=== PATIENT | female | born 1940 | race Caucasian/White ===

== ENCOUNTER 2018-09-08 18:15 | Emergency (ER) | payer MEDICARE ==
--- NOTE | 2018-09-08 18:36 | ED Physician Documentation ---
PD HPI SYNCOPE - Stated complaint Stated Complaint: SYNCOPE/GLF - Chief complaint Chief Complaint: Neuro - History obtained from History obtained from: Patient, Family - History of Present Illness Timing - onset: Today (For a few minutes and then passed out. She scraped her left knee and right elbow. Unclear when her last tetanus shot was. 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 She says she was not drinking today. Nor does she drink alcohol at all.) Review of Systems Ten Systems: 10 systems reviewed and negative Constitutional: reports: Reviewed and negative Cardiac: reports: Reviewed and negative Respiratory: reports: Reviewed and negative PD PAST MEDICAL HISTORY - Present Medications Home Medications: Ambulatory Orders Medication Instructions Recorded Confirmed Acetaminophen [Tylenol Extra 1,000 mg PO BID 09/08/18 09/08/18 Strength] Amox/Clav 875/125 [Augmentin] 1 each PO Q12H #20 tablet 09/08/18 Fluticasone 44 Mcg [Flovent] 2 puffs INH BID 09/08/18 09/08/18 Insulin Aspart [NovoLOG] 1 unit SUBQ ACHS 09/08/18 09/08/18 Insulin Detemir [Levemir Flextouch] 11 unit SUBQ QPM 09/08/18 09/08/18 Ipratropium/Albuterol [Combivent 1 puffs INH QID 09/08/18 09/08/18 Respimat] Magnesium Oxide [Mag Ox] 400 mg PO QDBREAKFAST 09/08/18 09/08/18 RX: Atorvastatin [Lipitor] 10 mg PO QDBREAKFAST 09/08/18 09/08/18 RX: Bumetanide 1 mg PO BID 09/08/18 09/08/18 RX: Donepezil [Aricept] 2.5 mg PO QDBREAKFAST 09/08/18 09/08/18 RX: Ibuprofen 200 mg PO BID 09/08/18 09/08/18 RX: Lactulose 10 gm PO TID 09/08/18 09/08/18 RX: Levothyroxine [Synthroid] 75 mg PO DAILY 09/08/18 09/08/18 RX: Losartan Potassium 25 mg PO QDDINNER 09/08/18 09/08/18 RX: Potassium Chloride 20 meq PO QDBREAKFAST 09/08/18 09/08/18 RX: traZODone [Desyrel] 50 mg PO QPM 09/08/18 09/08/18 Sertraline [Zoloft] 100 mg PO QDBREAKFAST 09/08/18 09/08/18 raNITIdine HCl [Zantac] 150 mg PO QDBREAKFAST 09/08/18 09/08/18 rifAXIMin [Xifaxan] 550 mg PO BID 09/08/18 09/08/18 rifAXIMin [Xifaxan] 550 mg PO QDBREAKFAST 09/08/18 09/08/18 - Allergies Allergies/Adverse Reactions: Allergies Allergy/AdvReac Type Severity Reaction Status Date / Time Iodinated Contrast- Oral and Allergy Unknown Verified 09/08/18 18:27 IV Dye shellfish derived Allergy Anaphylaxis Verified 09/08/18 18:28 PD ED PE NORMAL - Vitals Vital signs reviewed: Yes - General General: Alert and oriented X 3, Other (Slightly slow to answer questions) - HEENT HEENT: PERRL, EOMI, Pharynx benign - Neck Neck: Supple, no meningeal sign, No bony TTP - Cardiac Cardiac: RRR, No murmur - Respiratory Respiratory: No respiratory distress, Clear bilaterally - Abdomen Abdomen: Soft, Non tender - Back Back: No CVA TTP, No spinal TTP - Derm Derm: Normal color, Warm and dry - Extremities Extremities: No edema, No calf tenderness / cord - Neuro Neuro: Alert and oriented X 3, No motor deficit, No sensory deficit, Normal speech, Other (no gross asterixis) Eye Opening: Spontaneous Motor: Obeys Commands Verbal: Oriented GCS Score: 15 Results - Vitals Vitals: Vital Signs - 24 hr 09/08/18 09/08/18 18:22 19:10 Temperature 36.5 C Heart Rate 68 66 Respiratory 16 20 Rate Blood Pressure 163/62 H 104/84 H O2 Saturation 95 96 Oxygen O2 Source Room air - EKG (time done) 1823 Rate: Rate (enter#) (66) Rhythm: NSR [place]: Normal Intervals: Normal CT QRS: LVH Ischemia: Normal ST segments Computer interpretation: Agree with computer - Labs Labs: Laboratory Tests 09/08/18 09/08/18 09/08/18 18:35 18:35 18:35 WBC 7.8 RBC 3.40 L Hgb 11.0 L Hct 33.4 L MCV 98.2 MCH 32.4 H MCHC 32.9 RDW 13.1 Plt Count 156 MPV 9.9 Neut # (Auto) 5.7 Lymph # (Auto) 1.4 L [place] # (Auto) 0.5 Eos # (Auto) 0.2 Baso # (Auto) 0.0 Absolute Nucleated RBC 0.00 Nucleated RBC % 0.0 PT 12.9 H INR 1.1 Sodium 138 Potassium 3.7 Chloride 104 Carbon Dioxide 23 Anion Gap 11.0 BUN 21 H Creatinine 0.9 Estimated GFR (MDRD) 61 L Glucose 189 H POC Whole Bld Glucose Calcium 9.4 Total Bilirubin 0.8 AST 34 ALT 23 Alkaline Phosphatase 96 Ammonia Total Protein 6.5 L Albumin 3.5 Globulin 3.0 Albumin/Globulin Ratio 1.2 Lipase 31 Ethyl Alcohol < 5.0 09/08/18 09/08/18 18:35 18:36 WBC RBC Hgb Hct MCV MCH MCHC RDW Plt Count MPV Neut # (Auto) Lymph # (Auto) [place] # (Auto) Eos # (Auto) Baso # (Auto) Absolute Nucleated RBC Nucleated RBC % PT INR Sodium Potassium Chloride Carbon Dioxide Anion Gap BUN Creatinine Estimated GFR (MDRD) Glucose POC Whole Bld Glucose 170 H Calcium Total Bilirubin AST ALT Alkaline Phosphatase Ammonia 76.8 H Total Protein Albumin Globulin Albumin/Globulin Ratio Lipase Ethyl Alcohol - Rads (name of study) CT Head and Cspine Radiology: EMP read contemporaneously (Maxillary sinusitis, apical lung mass, note the family was aware of this, they have already had a biopsied and it was benign and has not grown.) PD MEDICAL DECISION MAKING - ED course ED course: 77-year-old woman with syncopal episode earlier today. Findings are as shown with modest hyperammonemia/hepatic encephalopathy (grade I), apical lung mass but the family was all aware of that and sinusitis. She remained well-appearing without complaints here. Her wounds were cleansed and dressed and tetanus was updated. Departure - Departure Disposition: 01 Home, Self Care Clinical Impression: Hepatic encephalopathy, Sinusitis, Lung mass Condition: Good Record reviewed to determine appropriate education?: Yes Health Concerns: syncope Plan of Treatment: abx, lactulose Assessment: Known lung mass, stable per family. Mild hepatic encephalopathy, will take a double dose of lactulose when she gets home as she has about a 30 or 40-minute car trip in front of her after she leaves the hospital. Start antibiotics for the sinus infection. Follow-up with gastroenterology. Instructions: Cirrhosis Liver Dc, ED Sinusitis Abx Tx Follow-Up: Addison Lopez MD [Physician No Access] - Prescriptions: Amox/Clav 875/125 [Augmentin] 1 each PO Q12H #20 tablet Comments: Your ammonia level today was 76.8. You should email your pearl peller with this value. He may want to repeat labs later this week to recheck it. Take a double dose of lactulose tonight and continue taking your lactulose otherwise as directed. Return for new or worsening symptoms. Discharge Date/Time: 09/08/18 19:57
[2018-09-08] MEDS ORDERED: TETANUS/DIPHTHERIA/PERTUSSIS 0.5 ML SYRINGE IM ONE (18:41)
[2018-09-08 18:57] LABS: ALBUMIN 3.5 g/dL (3.2-5.5); ALBUMIN/GLOBULIN RATIO 1.2 (1.0-2.2); ALKALINE PHOSPHATASE 96 IU/L (42-121); ALT ALANINE AMINOTRANSFERASE 23 IU/L (10-60); AST ASPARTATE AMINOTRANSFERASE 34 IU/L (10-42); BILIRUBIN,TOTAL 0.8 mg/dL (0.2-1.0); BUN - BLOOD UREA NITROGEN 21 mg/dL (6-20); CALCIUM 9.4 mg/dL (8.5-10.3); CARBON DIOXIDE - CO2 23 mmol/L (21-32); CHLORIDE 104 mmol/L (101-111); CREATININE 0.9 mg/dL (0.4-1.0); GFR - MDRD 61 (>89); GLUCOSE 189 mg/dL (70-100); LIPASE 31 U/L (22-51); SODIUM 138 mmol/L (135-145); TOTAL PROTEIN 6.5 g/dL (6.7-8.2)
[2018-09-08 19:01] LABS: BASOPHILS % (AUTO) 0.5 %; EOSINOPHILS # (AUTO) 0.2 10^3/uL (0.0-0.7); EOSINOPHILS % (AUTO) 1.9 %; LYMPHOCYTES # (AUTO) 1.4 10^3/uL (1.5-3.5); LYMPHOCYTES % (AUTO) 18.4 %; MEAN CORPUSCULAR HEMOGLOBIN 32.4 pg (27.0-31.0); MEAN CORPUSCULAR HGB CONC 32.9 g/dL (32.0-36.0); MEAN CORPUSCULAR VOLUME 98.2 fL (81.0-99.0); MEAN PLATELET VOLUME 9.9 fL (7.9-10.8); MONOCYTES # (AUTO) 0.5 10^3/uL (0.0-1.0); MONOCYTES % (AUTO) 6.5 %; NEUTROPHILS # (AUTO) 5.7 10^3/uL (1.5-6.6); NEUTROPHILS % (AUTO) 72.6 %; PLT - PLATELET COUNT 156 10^3/uL (130-450); RED CELL DISTRIBUTION WIDTH 13.1 % (12.0-15.0); WHITE BLOOD COUNT 7.8 x10^3/uL (4.8-10.8)
[2018-09-08 19:14] LABS: INR 1.1 (0.8-1.2); PT - PROTHROMBIN TIME 12.9 secs (9.9-12.6)
[2018-09-08 19:15] VITALS: BP 104/84
--- NOTE | 2018-09-08 19:20 | CT Report ---
Reason: syncope, poss head inj Procedure Date: 09/08/2018 Accession Number: [id number] / [id number] Procedure: CT - HEAD WO CPT Code: FULL RESULT: EXAM: CT HEAD EXAM DATE: 09/08/2018 06:54 PM. CLINICAL HISTORY: Syncope, poss head inj. COMPARISON: None. TECHNIQUE: Multiaxial CT images were obtained from the foramen magnum to the vertex. Reformats: Sagittal and coronal. IV contrast: None. In accordance with CT protocol optimization, one or more of the following dose reduction techniques were utilized for this exam: automated exposure control, adjustment of mA and/or KV based on patient size, or use of iterative reconstructive technique. FINDINGS: Parenchyma: No intraparenchymal hemorrhage. No evidence of mass, midline shift, or CT findings of infarction. Faustin-white differentiation is distinct. Extraaxial Spaces: Normal for age. No subdural or epidural collections identified. Ventricles: Normal in size and position. Sinuses and Orbits: Opacified upper left maxillary sinus and anterior ethmoid air cells. Bones: No evidence of fracture or calvarial defect. Other: None. IMPRESSION: No acute intracranial abnormality. RADIA
--- NOTE | 2018-09-08 19:26 | CT Report ---
Reason: syncope, poss head inj Procedure Date: 09/08/2018 Accession Number: [id number] / [id number] Procedure: CT - CERVICAL SPINE WO CPT Code: FULL RESULT: EXAM: CT CERVICAL SPINE WITHOUT CONTRAST DATE: 09/08/2018 06:54 PM. HISTORY: Syncope, poss head inj. COMPARISONS: None. TECHNIQUE: Thin-section axial images were acquired of the cervical spine without contrast. Post-processing: Coronal and sagittal reformats. Other: None. In accordance with CT protocol optimization, one or more of the following dose reduction techniques were utilized for this exam: automated exposure control, adjustment of mA and/or KV based on patient size, or use of iterative reconstructive technique. FINDINGS: Alignment: No scoliosis or spondylolisthesis. Bones: No acute fracture. The bones are demineralized. Interspace Levels/Facets: Mild to moderate multilevel disk degeneration and facet arthrosis without high-grade spinal canal stenosis. Other: The paravertebral and prevertebral soft tissues are unremarkable. 1.8 x 1.6 cm subpleural nodule in the subpleural right lung apex with surrounding heterogeneous reticulation and groundglass. IMPRESSION: 1. No acute fracture. 2. Subpleural right upper lobe nodule with surrounding reticulation and groundglass, which may represent chronic scarring. Differential includes neoplasm. No priors available. RADIA
[2018-09-08] MEDS ORDERED: AMOX/CLAV 875 MG/125 MG TABLET PO STA (19:41)
== END 2018-09-08 19:57 | disposition home or self-care (01) ==
LOC: ED 18:15
DX: R55 Syncope and collapse (principal); K72.90 Hepatic failure, unspecified without coma; B19.20 Unspecified viral hepatitis C without hepatic coma; J01.00 Acute maxillary sinusitis, unspecified; R91.8 Other nonspecific abnormal finding of lung field; S80.212A Abrasion, left knee, initial encounter; S50.311A Abrasion of right elbow, initial encounter; W18.30XA Fall on same level, unspecified, initial encounter; Y93.K1 Activity, walking an animal; Z23 Encounter for immunization; E11.9 Type 2 diabetes mellitus without complications; Z79.4 Long term (current) use of insulin; I51.7 Cardiomegaly
CPT/HCPCS: 36415; 70450; 72125; 80053; 82140; 83690; 85025; 85610; 90471; 90715; 93005; 99283; 99284; A9270; 80320

== ENCOUNTER 2018-10-13 13:10 | Outpatient (CLI) | payer MEDICARE | END 2018-10-13 13:11 | disposition EMS.NT | LOC: EMS 13:10 | PROVIDERS: ATTEND Surgery | DX: Z03.89 Encounter for observation for other suspected diseases and conditions ruled out (principal) ==

== ENCOUNTER 2018-11-15 20:21 | Emergency (ER) | payer MEDICARE ==
--- NOTE | 2018-11-15 20:28 | ED Physician Documentation ---
PD HPI FOCAL NEURO - Stated complaint Stated Complaint: SLURRING WORDS - History obtained from History obtained from: Patient - History of Present Illness Timing - onset: How many hours ago (2 hours COMMUNICATIONS ADMINISTRATOR) Timing - details: Abrupt onset Severity of deficit: Moderate Baseline status: positive: Dementia (per son, patient is usually conversant but can be slow with some answers and sometimes incorrect answers) Similar symptoms before: Diagnosis (son feels that symptoms are similar to previous episodes (x 2) of hepatic encephalopathy) Recently seen: Not recently seen - Additional information Additional information: per patient's son, approximately 2 hours COMMUNICATIONS ADMINISTRATOR, patient was exhibiting slurred speech, "not quite acting herself", decreased appetite (had just eaten dinner but declined desert, which is unusual for her). She also appeared to have difficulty with coordination and ambulation. She had recently (tonight) been given her QPM trazadone as well as a dose of benadryl earlier this afternoon. Review of Systems Constitutional: denies: Fever, Chills, Sweats Eyes: denies: Loss of vision, Decreased vision Cardiac: reports: Reviewed and negative Respiratory: reports: Reviewed and negative GI: reports: Reviewed and negative : denies: Dysuria, Frequency Musculoskeletal: reports: Reviewed and negative Neurologic: reports: Difficulty speaking, Altered mental status. denies: Generalized weakness, Focal weakness, Numbness, Near syncope, Syncope, Headache, Head injury, LOC PD PAST MEDICAL HISTORY - Past Medical History Cardiovascular: Murmur Respiratory: COPD Neuro: Dementia Endocrine/Autoimmune: Type 2 diabetes, HyPOthyroidism GI: None TRAFFIC PERSONNEL SUPERVISOR: None : Kidney stones HEENT: Other Psych: Depression Musculoskeletal: None Derm: Psoriasis - Past Surgical History Past Surgical History: Yes Ortho: Carpal Tunnel surgery /TRAFFIC PERSONNEL SUPERVISOR: Hysterectomy - Present Medications Home Medications: Ambulatory Orders Medication Instructions Recorded Confirmed Acetaminophen [Tylenol Extra 1,000 mg PO BID 09/08/18 09/08/18 Strength] Amox/Clav 875/125 [Augmentin] 1 each PO Q12H #20 tablet 09/08/18 Atorvastatin [Lipitor] 10 mg PO QDBREAKFAST 09/08/18 09/08/18 Bumetanide 1 mg PO BID 09/08/18 09/08/18 Donepezil [Aricept] 2.5 mg PO QDBREAKFAST 09/08/18 09/08/18 Fluticasone 44 Mcg [Flovent] 2 puffs INH BID 09/08/18 09/08/18 Ibuprofen 200 mg PO BID 09/08/18 09/08/18 Insulin Aspart [NovoLOG] 1 unit SUBQ ACHS 09/08/18 09/08/18 Insulin Detemir [Levemir Flextouch] 11 unit SUBQ QPM 09/08/18 09/08/18 Ipratropium/Albuterol [Combivent 1 puffs INH QID 09/08/18 09/08/18 Respimat] Lactulose 10 gm PO TID 09/08/18 09/08/18 Levothyroxine [Synthroid] 75 mg PO DAILY 09/08/18 09/08/18 Losartan Potassium 25 mg PO QDDINNER 09/08/18 09/08/18 Magnesium Oxide [Mag Ox] 400 mg PO QDBREAKFAST 09/08/18 09/08/18 Potassium Chloride 20 meq PO QDBREAKFAST 09/08/18 09/08/18 Sertraline [Zoloft] 100 mg PO QDBREAKFAST 09/08/18 09/08/18 raNITIdine HCl [Zantac] 150 mg PO QDBREAKFAST 09/08/18 09/08/18 rifAXIMin [Xifaxan] 550 mg PO BID 09/08/18 09/08/18 rifAXIMin [Xifaxan] 550 mg PO QDBREAKFAST 09/08/18 09/08/18 traZODone [Desyrel] 50 mg PO QPM 09/08/18 09/08/18 - Allergies Allergies/Adverse Reactions: Allergies Allergy/AdvReac Type Severity Reaction Status Date / Time Iodinated Contrast Media Allergy Unknown Verified 11/15/18 20:33 [Iodinated Contrast- Oral and IV Dye] shellfish derived Allergy Anaphylaxis Verified 11/15/18 20:33 - Social History Does the pt smoke?: No Smoking Status: Never smoker Does the pt drink ETOH?: Yes - Immunizations Immunizations: TDAP current <10years PD ED PE NORMAL - Vitals Vital signs reviewed: Yes - General General: Alert and oriented X 3, No acute distress, Well developed/nourished, Other (answers appropriately although slow to answer most questions) - HEENT HEENT: Atraumatic, PERRL, EOMI - Neck Neck: Supple, no meningeal sign - Cardiac Cardiac: RRR, No murmur - Respiratory Respiratory: No respiratory distress, Clear bilaterally - Abdomen Abdomen: Soft, Non tender - Derm Derm: Normal color, Warm and dry - Extremities Extremities: No edema - Neuro Neuro: Alert and oriented X 3, plate put in worker 2-12 intact, No motor deficit, No sensory deficit, Normal speech Eye Opening: Spontaneous Motor: Obeys Commands Verbal: Oriented GCS Score: 15 - Psych Psych: Normal mood, Normal affect NIHSS - Level of Consciousness Level of consciousness: (0) Alert, Keenly responsive LOC Questions: (0) Answers both Q's correct LOC Commands: (0) Performs both correctly - Gaze Best Gaze: (0) Normal - Visual Visual: (0) No loss - Facial Palsy Facial Palsy: (0) Normal, symmetrical movement - Motor Arms (both separate) Motor Arm (right): (0) No drift Motor Arm (left): (0) No drift - Motor Legs (both separate) Motor Leg (right): (0) No drift Motor Leg (left): (0) No drift - Limb Ataxia Limb Ataxia: (0) Absent - Sensory Sensory: (0) Normal - Best Language Best Language: (0) No aphasia - Dysarthria Dysarthria: (0) Normal - Extinction and Inattention (formally neg Extinction and inattention: (0) No abnormality - Total Score/Results Total Score/Result: 0 Results - Vitals Vitals: Vital Signs - 24 hr 11/15/18 11/15/18 11/15/18 20:26 20:50 21:45 Temperature 36.4 C L Heart Rate 79 78 70 Respiratory 20 20 17 Rate Blood Pressure 148/66 H 132/78 H 146/128 H O2 Saturation 97 98 95 11/15/18 22:00 Temperature Heart Rate 70 Respiratory 19 Rate Blood Pressure 126/76 O2 Saturation 97 Oxygen O2 Source Room air - EKG (time done) No standard instances Rate: Rate (enter#) (76) Rhythm: NSR [place]: Normal Intervals: Normal AL, Prolonged QT QRS: LVH Ischemia: Normal ST segments - Labs Labs: Laboratory Tests 11/15/18 11/15/18 11/15/18 20:23 20:23 20:23 WBC RBC Hgb Hct MCV MCH MCHC RDW Plt Count MPV Neut # (Auto) Lymph # (Auto) [place] # (Auto) Eos # (Auto) Baso # (Auto) Absolute Nucleated RBC Nucleated RBC % PT 12.5 INR 1.1 APTT 30.8 Sodium Potassium Chloride Carbon Dioxide Anion Gap BUN Creatinine Estimated GFR (MDRD) Glucose Calcium Total Bilirubin AST ALT Alkaline Phosphatase Ammonia 78.1 H Total Protein Albumin Globulin Albumin/Globulin Ratio Lipase Urine Color Urine Clarity Urine pH Ur Specific [place] Urine Protein Urine Glucose (UA) Urine Ketones Urine Occult Blood Urine Nitrite Urine Bilirubin Urine Urobilinogen Ur Leukocyte Esterase Urine RBC Urine WBC Ur Squamous Epith Cells Urine Bacteria Urine Casts Ur Microscopic Review Urine Culture Comments Urine Opiates Screen Ur Oxycodone Screen Urine Methadone Screen Ur Propoxyphene Screen Ur Barbiturates Screen Ur Tricyclics Screen Ur Phencyclidine Scrn Ur Amphetamine Screen U Methamphetamines Scrn U Benzodiazepines Scrn Urine Cocaine Screen U Cannabinoids Screen Ethyl Alcohol < 5.0 11/15/18 11/15/18 11/15/18 20:30 20:30 21:07 WBC 8.5 RBC 3.82 L Hgb 12.7 Hct 37.5 MCV 98.2 MCH 33.2 H MCHC 33.9 RDW 13.7 Plt Count 166 MPV 9.5 Neut # (Auto) 5.4 Lymph # (Auto) 2.2 [place] # (Auto) 0.5 Eos # (Auto) 0.2 Baso # (Auto) 0.1 Absolute Nucleated RBC 0.00 Nucleated RBC % 0.0 PT INR APTT Sodium 141 Potassium 3.6 Chloride 104 Carbon Dioxide 25 Anion Gap 12.0 BUN 17 Creatinine 1.0 Estimated GFR (MDRD) 54 L Glucose 84 Calcium 10.0 Total Bilirubin 0.8 AST 60 H ALT 39 Alkaline Phosphatase 116 Ammonia Total Protein 7.5 Albumin 4.0 Globulin 3.5 Albumin/Globulin Ratio 1.1 Lipase 35 Urine Color YELLOW Urine Clarity CLEAR Urine pH 5.5 Ur Specific [place] 1.010 Urine Protein NEGATIVE Urine Glucose (UA) NEGATIVE Urine Ketones NEGATIVE Urine Occult Blood NEGATIVE Urine Nitrite NEGATIVE Urine Bilirubin NEGATIVE Urine Urobilinogen 0.2 (NORMAL) Ur Leukocyte Esterase MODERATE H Urine RBC 0-5 Urine WBC 11-25 H Ur Squamous Epith Cells MOD Squamous H Urine Bacteria Few Urine Casts 0-2 Hyaline Casts Ur Microscopic Review INDICATED Urine Culture Comments NOT INDICATED Urine Opiates Screen NEGATIVE Ur Oxycodone Screen NEGATIVE Urine Methadone Screen NEGATIVE Ur Propoxyphene Screen NEGATIVE Ur Barbiturates Screen NEGATIVE Ur Tricyclics Screen NEGATIVE Ur Phencyclidine Scrn NEGATIVE Ur Amphetamine Screen NEGATIVE U Methamphetamines Scrn NEGATIVE U Benzodiazepines Scrn NEGATIVE Urine Cocaine Screen NEGATIVE U Cannabinoids Screen NEGATIVE Ethyl Alcohol - Rads (name of study) chest xray Radiology: Prelim report reviewed, See rad report CT head Radiology: Prelim report reviewed, See rad report PD MEDICAL DECISION MAKING - ED course Complexity details: reviewed old records, reviewed results, re-evaluated patient, considered differential, d/w patient, d/w family ED course: on reevaluation, patient feels improved, "can think easier" (and she does not appear to have as difficult a time answering questions, taking less time to answer and appearing to have more confidence in her answers than initial H+P). Discussed results with patient and son. He is comfortable taking patient home and patient is comfortable going home, as well. I discussed with them that the high ammonia level is suspect as a contribution, and possibly the cause, of the symptoms tonight, but that other causes such as TIA were not "ruled out" with tonight's tests. Patient and her son were instructed to have her return to ED if symptoms recur or she is worse in any way, and that she needs to follow up with her primary care physician, as further tests might be needed even if she does not have symptom recurrence. I instructed them to have her take an extra dose of lactulose once she is home. UA s/o UTI, but significant squamous cells confound interpretation of the results. However, son says patient was recently started on an antibiotic for UTI and has only had a few doses, and thus I do not feel patient would benefit from changing or augmenting her current antibiotic(s) at this time. Departure - Departure Disposition: 01 Home, Self Care Clinical Impression: Hepatic encephalopathy, Altered mental status Condition: Good Instructions: ED Altered Loc, ED Transient Ischemic Attack Follow-Up: SHAWNEE GONZALEZ MD [Primary Care Provider] - Within 1 week Comments: Take an extra dose of lactulose as soon as you get home from the emergency department tonight Discharge Date/Time: 11/15/18 22:20
[2018-11-15 20:40] LABS: BASOPHILS # (AUTO) 0.1 10^3/uL (0.0-0.1); BASOPHILS % (AUTO) 0.6 %; EOSINOPHILS # (AUTO) 0.2 10^3/uL (0.0-0.7); EOSINOPHILS % (AUTO) 2.5 %; HGB - HEMOGLOBIN 12.7 g/dL (12.0-16.0); LYMPHOCYTES # (AUTO) 2.2 10^3/uL (1.5-3.5); LYMPHOCYTES % (AUTO) 26.5 %; MEAN CORPUSCULAR HEMOGLOBIN 33.2 pg (27.0-31.0); MEAN CORPUSCULAR HGB CONC 33.9 g/dL (32.0-36.0); MEAN CORPUSCULAR VOLUME 98.2 fL (81.0-99.0); MEAN PLATELET VOLUME 9.5 fL (7.9-10.8); MONOCYTES # (AUTO) 0.5 10^3/uL (0.0-1.0); MONOCYTES % (AUTO) 6.3 %; NEUTROPHILS # (AUTO) 5.4 10^3/uL (1.5-6.6); NEUTROPHILS % (AUTO) 63.6 %; PLT - PLATELET COUNT 166 10^3/uL (130-450); RED BLOOD COUNT 3.82 10^6/uL (4.20-5.40); RED CELL DISTRIBUTION WIDTH 13.7 % (12.0-15.0); WHITE BLOOD COUNT 8.5 x10^3/uL (4.8-10.8)
[2018-11-15 20:56] LABS: ALBUMIN/GLOBULIN RATIO 1.1 (1.0-2.2); BILIRUBIN,TOTAL 0.8 mg/dL (0.2-1.0); TOTAL PROTEIN 7.5 g/dL (6.7-8.2)
[2018-11-15 21:15] LABS: MUDS CUTOFF CONCENTRATIONS CUTOFF CONC BELOW:
[2018-11-15 21:20] LABS: BILIRUBIN,URINE NEGATIVE (NEGATIVE); GLUCOSE, URINE (UA) NEGATIVE (NEGATIVE); KETONES,URINE (UA) NEGATIVE (NEGATIVE); LEUKOCYTE ESTERASE, URINE MODERATE (NEGATIVE); NITRITE,URINE NEGATIVE (NEGATIVE); OCCULT BLOOD,URINE NEGATIVE (NEGATIVE); PH,URINE 5.5 PH (5.0-7.5); PROTEIN,URINE NEGATIVE (NEGATIVE); UROBILINOGEN,URINE 0.2 (NORMAL) E.U./dL (NORMAL)
[2018-11-15 21:25] LABS: CLARITY,URINE CLEAR (CLEAR)
[2018-11-15 21:28] LABS: AMPHETAMINE SCREEN,URINE NEGATIVE (NEGATIVE); BENZODIAZEPINES SCREEN, URINE NEGATIVE (NEGATIVE); COCAINE SCREEN URINE NEGATIVE (NEGATIVE); METHADONE SCREEN, URINE NEGATIVE (NEGATIVE); METHAMPHETAMINES SCREEN, URINE NEGATIVE (NEGATIVE); OPIATE SCREEN, URINE NEGATIVE (NEGATIVE); OXYCODONE SCREEN, URINE NEGATIVE (NEGATIVE); PROPOXYPHENE SCREEN, URINE NEGATIVE (NEGATIVE); TRICYCLIC ANTIDEPRESSANT,URINE NEGATIVE (NEGATIVE)
--- NOTE | 2018-11-15 21:34 | XRAY Report ---
Reason: chest pain Procedure Date: 11/15/2018 Accession Number: [id number] / [id number] Procedure: XR - Chest 1 View X-Ray CPT Code: 42921 FULL RESULT: EXAM: CHEST RADIOGRAPHY EXAM DATE: 11/15/2018 09:04 PM. CLINICAL HISTORY: Chest pain. Altered mental status. Loss of appetite and generalized weakness. COMPARISON: None. TECHNIQUE: 1 view. FINDINGS: Lungs/Pleura: No focal opacities evident. No pleural effusion. No pneumothorax. Mediastinum: Mild cardiomegaly. Other: None. IMPRESSION: Mild cardiomegaly. RADIA
[2018-11-15 21:36] LABS: BACTERIA,URINE Few /HPF (None Seen); RBC,URINE 0-5 /HPF (0-5); SQUAMOUS EPITHELIAL CELL,UR MOD Squamous (<= Few)
[2018-11-15 21:37] LABS: CASTS, URINE 0-2 Hyaline Casts /LPF
--- NOTE | 2018-11-15 21:37 | CT Report ---
Reason: AMS Procedure Date: 11/15/2018 Accession Number: [id number] / [id number] Procedure: CT - HEAD WO CPT Code: FULL RESULT: EXAM: CT HEAD EXAM DATE: 11/15/2018 09:02 PM. CLINICAL HISTORY: AMS. COMPARISON: CERVICAL SPINE W/O 09/08/2018 6:46 PM. TECHNIQUE: Multiaxial CT images were obtained from the foramen magnum to the vertex. Reformats: Sagittal and coronal. IV contrast: None. In accordance with CT protocol optimization, one or more of the following dose reduction techniques were utilized for this exam: automated exposure control, adjustment of mA and/or KV based on patient size, or use of iterative reconstructive technique. FINDINGS: Parenchyma: There are no hemorrhages nor evidence at this time for acute infarcts. There are areas of decreased attenuation within the white matter tracts compatible with changes of microangiopathy. Extraaxial Spaces: Normal for age. No subdural or epidural collections identified. Ventricles: Normal in size and position. Sinuses and Orbits: There is complete opacification of the left maxillary antrum and opacification of the left anterior ethmoidal or cells. The muscular cells are clear. Bones: No evidence of fracture or calvarial defect. Other: None. IMPRESSION: 1. Age related changes of the brain. 2. No acute findings in the present study. 3. Maxillary and left ethmoid sinus opacifications. RADIA
[2018-11-15 21:41] LABS: INR 1.1 (0.8-1.2); PT - PROTHROMBIN TIME 12.5 secs (9.9-12.6)
[2018-11-15 21:48] LABS: PARTIAL THROMBOPLASTIN TIME 30.8 secs (24.9-33.3)
[2018-11-15 22:04] VITALS: BP 126/76
== END 2018-11-15 22:20 | disposition home or self-care (01) ==
LOC: ED 20:21
DX: K72.90 Hepatic failure, unspecified without coma (principal); I45.81 Long QT syndrome; E11.9 Type 2 diabetes mellitus without complications; Z79.4 Long term (current) use of insulin; F03.90 Unspecified dementia, unspecified severity, without behavioral disturbance, psychotic disturbance, mood disturbance, and anxiety
CPT/HCPCS: 36415; 70450; 71045; 80053; 80306; 80320; 81001; 81003; 82140; 83690; 85025; 85610; 85730; 87086; 93005; 99283; 99284

== ENCOUNTER 2019-06-25 14:17 | Outpatient (CLI) | payer MEDICARE | END 2019-06-25 14:18 | disposition critical access hospital (66) | LOC: EMS 14:17 | PROVIDERS: ATTEND Surgery | DX: M54.9 Dorsalgia, unspecified (principal); R41.0 Disorientation, unspecified | CPT/HCPCS: A0425; A0429 ==

== ENCOUNTER 2019-06-25 14:49 | Emergency (ER) | payer MEDICARE ==
[2019-06-25] MEDS ORDERED: LACTULOSE 10 GM /15 ML UDC PO STA (15:24)
--- NOTE | 2019-06-25 15:31 | ED Physician Documentation ---
History of Present Illness - Stated complaint Stated Complaint: BACK PAIN - Chief complaint Chief Complaint: Back Pain - History obtained from History obtained from: Patient, Family (Son reports pt has a hx/o liver disease as well as dementia. She has periodic confusion, but has been more confused and generally weak today and also c/o lower back pain. The pain has been so significant that she hasn't wanted to ambulate. This is apparently a typical presentation for her when her ammonia level rises. Son states pt has been taking lactulose, but he is not sure if she is having BMs. She reports to him that she is, but he does not know if this is accurate. Was in usual state of health yesterday and sx started this AM. She was started on memantine about 2 weeks ago but no other new meds, is not on any narcotics or other medication that may induce confusion. No fever, chills, cough or URI sx (beyond baseline mild cough w/ COPD), chest pain, dyspnea, abd pain, n/v/d, dysuria.) Review of Systems Unable to obtain: Confused (Pt answering questions periodically but is unreliable historian. Son providing most history.) Constitutional: reports: Reviewed and negative Eyes: reports: Reviewed and negative Ears: reports: Reviewed and negative Nose: reports: Reviewed and negative Throat: reports: Reviewed and negative Cardiac: reports: Reviewed and negative Respiratory: reports: Reviewed and negative GI: reports: Reviewed and negative Skin: reports: Reviewed and negative Musculoskeletal: reports: Reviewed and negative Neurologic: reports: Generalized weakness, Confused. 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 : Kidney stones HEENT: Other Psych: Depression Musculoskeletal: None Derm: Psoriasis - Past Surgical History Past Surgical History: Yes Ortho: Carpal Tunnel surgery /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: Hysterectomy - Present Medications Home Medications: Ambulatory Orders Medication Instructions Recorded Confirmed Acetaminophen [Tylenol Extra 1,000 mg PO BID 09/08/18 09/08/18 Strength] Atorvastatin [Lipitor] 10 mg PO QDBREAKFAST 09/08/18 09/08/18 Bumetanide 1 mg PO BID 09/08/18 09/08/18 Fluticasone 44 Mcg [Flovent] 2 puffs INH BID 09/08/18 09/08/18 Ibuprofen 200 mg PO BID 09/08/18 09/08/18 Insulin Aspart [NovoLOG] 1 unit SUBQ ACHS 09/08/18 09/08/18 Insulin Detemir [Levemir Flextouch] 11 unit SUBQ QPM 09/08/18 09/08/18 Ipratropium/Albuterol [Combivent 1 puffs INH QID 09/08/18 09/08/18 Respimat] Lactulose 10 gm PO TID 09/08/18 09/08/18 Levothyroxine [Synthroid] 75 mg PO DAILY 09/08/18 09/08/18 Losartan Potassium 100 mg PO QDDINNER 09/08/18 09/08/18 Magnesium Oxide [Mag Ox] 400 mg PO QDBREAKFAST 09/08/18 09/08/18 Potassium Chloride 20 meq PO QDBREAKFAST 09/08/18 09/08/18 Sertraline [Zoloft] 100 mg PO QDBREAKFAST 09/08/18 09/08/18 raNITIdine HCl [Zantac] 150 mg PO QDBREAKFAST 09/08/18 09/08/18 rifAXIMin [Xifaxan] 550 mg PO BID 09/08/18 09/08/18 traZODone [Desyrel] 50 mg PO QPM 09/08/18 09/08/18 Memantine [Namenda] 10 mg PO BID 06/25/19 06/25/19 - Allergies Allergies/Adverse Reactions: Allergies Allergy/AdvReac Type Severity Reaction Status Date / Time Iodinated Contrast Media Allergy Unknown Verified 11/15/18 20:33 [Iodinated Contrast- Oral and IV Dye] shellfish derived Allergy Anaphylaxis Verified 11/15/18 20:33 - Social History Does the pt smoke?: No Smoking Status: Never smoker Does the pt drink ETOH?: Yes - Immunizations Immunizations: TDAP current <10years PD ED PE NORMAL - Vitals Vital signs reviewed: Yes - General General: No acute distress, Well developed/nourished, Other (alert, oriented to self but otherwise confused, does not know son's name. ) - HEENT HEENT: Atraumatic, EOMI - Neck Neck: Supple, no meningeal sign, No JVD - Cardiac Cardiac: RRR, No murmur, No gallop, No rub, Strong equal pulses - Respiratory Respiratory: No respiratory distress, Clear bilaterally - Abdomen Abdomen: Normal bowel sounds, Soft, Non tender, Non distended - Back Back: No CVA TTP, No spinal TTP - Derm Derm: Normal color, Warm and dry, No rash - Extremities Extremities: No deformity, No tenderness to palpate, Normal ROM s pain, No edema, No calf tenderness / cord - Neuro Neuro: No motor deficit, No sensory deficit, Other (confused, but follows simple commands in all extremities, no facial droop, tongue midline, no pronator drift. ) Eye Opening: Spontaneous Motor: Obeys Commands Verbal: Confused GCS Score: 14 - Psych Psych: Normal mood Results - Vitals Vitals: Vital Signs - 24 hr 06/25/19 06/25/19 06/25/19 14:56 15:00 16:18 Temperature 37.2 C Heart Rate 87 85 83 Respiratory 18 16 16 Rate Blood Pressure 156/88 H 146/74 H 154/58 H O2 Saturation 97 100 95 06/25/19 06/25/19 18:00 18:16 Temperature 36.8 C Heart Rate 80 82 Respiratory 16 16 Rate Blood Pressure 148/62 H 136/65 H O2 Saturation 96 98 Oxygen O2 Source Room air - EKG (time done) No standard instances [place]: Normal Ischemia: Normal ST segments - Labs Labs: Laboratory Tests 06/25/19 06/25/19 06/25/19 14:13 15:00 15:00 WBC 10.1 RBC 3.75 L Hgb 11.5 L Hct 35.2 L MCV 93.9 MCH 30.7 MCHC 32.7 RDW 13.5 Plt Count 179 MPV 9.8 Neut # (Auto) 8.3 H Lymph # (Auto) 1.2 L Tate # (Auto) 0.5 Eos # (Auto) 0.0 Baso # (Auto) 0.1 Absolute Nucleated RBC 0.00 Nucleated RBC % 0.0 Sodium 138 Potassium 3.8 Chloride 103 Carbon Dioxide 24 Anion Gap 11.0 BUN 19 Creatinine 1.0 Estimated GFR (MDRD) 54 L Glucose 189 H Calcium 9.4 Total Bilirubin 1.3 H AST 108 H ALT 43 Alkaline Phosphatase 128 H Ammonia 46.2 H Total Protein 6.7 Albumin 3.5 Globulin 3.2 Albumin/Globulin Ratio 1.1 Lipase 23 Urine Color Urine Clarity Urine pH Ur Specific [employer] Urine Protein Urine Glucose (UA) Urine Ketones Urine Occult Blood Urine Nitrite Urine Bilirubin Urine Urobilinogen Ur Leukocyte Esterase Ur Microscopic Review Urine Culture Comments Urine Opiates Screen Ur Oxycodone Screen Urine Methadone Screen Ur Propoxyphene Screen Ur Barbiturates Screen Ur Tricyclics Screen Ur Phencyclidine Scrn Ur Amphetamine Screen U Methamphetamines Scrn U Benzodiazepines Scrn Urine Cocaine Screen U Cannabinoids Screen 06/25/19 06/25/19 15:46 15:46 WBC RBC Hgb Hct MCV MCH MCHC RDW Plt Count MPV Neut # (Auto) Lymph # (Auto) Tate # (Auto) Eos # (Auto) Baso # (Auto) Absolute Nucleated RBC Nucleated RBC % Sodium Potassium Chloride Carbon Dioxide Anion Gap BUN Creatinine Estimated GFR (MDRD) Glucose Calcium Total Bilirubin AST ALT Alkaline Phosphatase Ammonia Total Protein Albumin Globulin Albumin/Globulin Ratio Lipase Urine Color YELLOW Urine Clarity CLEAR Urine pH 5.5 Ur Specific [employer] 1.025 Urine Protein NEGATIVE Urine Glucose (UA) NEGATIVE Urine Ketones TRACE Urine Occult Blood NEGATIVE Urine Nitrite NEGATIVE Urine Bilirubin NEGATIVE Urine Urobilinogen 0.2 (NORMAL) Ur Leukocyte Esterase NEGATIVE Ur Microscopic Review NOT INDICATED Urine Culture Comments NOT INDICATED Urine Opiates Screen NEGATIVE Ur Oxycodone Screen NEGATIVE Urine Methadone Screen NEGATIVE Ur Propoxyphene Screen NEGATIVE Ur Barbiturates Screen NEGATIVE Ur Tricyclics Screen NEGATIVE Ur Phencyclidine Scrn NEGATIVE Ur Amphetamine Screen NEGATIVE U Methamphetamines Scrn NEGATIVE U Benzodiazepines Scrn NEGATIVE Urine Cocaine Screen NEGATIVE U Cannabinoids Screen NEGATIVE PD MEDICAL DECISION MAKING - ED course Complexity details: reviewed old records, reviewed results, re-evaluated patient, considered differential, d/w patient, d/w family ED course: 78 yo F who presented with lower back pain and confusion since this morning. She has a hx/o liver disease and has had encephalopathy in the past however her ammonia today is 45 and she was progressively less confused throughout ER stay. She also has a hx/o dementia and was recently started on memantine. She had no sign of UTI or other lab abnormalities that suggested infection or dehydration as cause of symptoms. Given normal labs, a CT head was done which was also normal. Upon reassessment, pt was back to her baseline (per son) and no longer has lower back pain. She had a large BM here after receiving lactulose and was able to get up and ambulate which she had not been able to do prior to arrival. She is essentially at baseline now so I discussed w/ son and we will discharge her home. He lives with her and will monitor closely for any recurrent sx. He also helps manage medications and ensures compliance with lactulose and other medications and will continue to do so. Pt will return if she has new or worsening symptoms. Departure - Departure Disposition: 01 Home, Self Care Clinical Impression: Confusion with non-focal neuro exam, Hepatic encephalopathy Back pain Qualifiers: Back pain location: low back pain Chronicity: chronic Back pain laterality: bilateral Sciatica presence: without sciatica Qualified Code(s): M54.5 - Low back pain Condition: Good Instructions: ED Cirrhosis Liver Comments: You presented today with confusion and severe lower back pain. Both of these resolved while in the ER and after having a bowel movement. Your ammonia level was mildly elevated, but your labs were otherwise reassuring. Your head CT was also normal. I advised you to continue to be compliant with your medication and monitor the number of bowel movements you are having. If you have recurrent confusion or other new symptoms, return to the ER. Discharge Date/Time: 06/25/19 18:17
[2019-06-25 15:37] LABS: BASOPHILS # (AUTO) 0.1 10^3/uL (0.0-0.1); BASOPHILS % (AUTO) 0.5 %; EOSINOPHILS % (AUTO) 0.2 %; HGB - HEMOGLOBIN 11.5 g/dL (12.0-16.0); LYMPHOCYTES # (AUTO) 1.2 10^3/uL (1.5-3.5); LYMPHOCYTES % (AUTO) 12.2 %; MEAN CORPUSCULAR HEMOGLOBIN 30.7 pg (27.0-31.0); MEAN CORPUSCULAR HGB CONC 32.7 g/dL (32.0-36.0); MEAN CORPUSCULAR VOLUME 93.9 fL (81.0-99.0); MEAN PLATELET VOLUME 9.8 fL (7.9-10.8); MONOCYTES # (AUTO) 0.5 10^3/uL (0.0-1.0); MONOCYTES % (AUTO) 4.7 %; NEUTROPHILS # (AUTO) 8.3 10^3/uL (1.5-6.6); PLT - PLATELET COUNT 179 10^3/uL (130-450); RED BLOOD COUNT 3.75 10^6/uL (4.20-5.40); RED CELL DISTRIBUTION WIDTH 13.5 % (12.0-15.0); WHITE BLOOD COUNT 10.1 x10^3/uL (4.8-10.8)
[2019-06-25 15:50] LABS: ALBUMIN 3.5 g/dL (3.2-5.5); ALBUMIN/GLOBULIN RATIO 1.1 (1.0-2.2); BILIRUBIN,TOTAL 1.3 mg/dL (0.2-1.0); CALCIUM 9.4 mg/dL (8.5-10.3); TOTAL PROTEIN 6.7 g/dL (6.7-8.2)
[2019-06-25 15:58] LABS: BILIRUBIN,URINE NEGATIVE (NEGATIVE); GLUCOSE, URINE (UA) NEGATIVE (NEGATIVE); KETONES,URINE (UA) TRACE mg/dL (NEGATIVE); LEUKOCYTE ESTERASE, URINE NEGATIVE (NEGATIVE); NITRITE,URINE NEGATIVE (NEGATIVE); OCCULT BLOOD,URINE NEGATIVE (NEGATIVE); PH,URINE 5.5 PH (5.0-7.5); PROTEIN,URINE NEGATIVE (NEGATIVE); UROBILINOGEN,URINE 0.2 (NORMAL) E.U./dL (NORMAL)
[2019-06-25 15:59] LABS: CLARITY,URINE CLEAR (CLEAR)
[2019-06-25 16:50] LABS: MUDS CUTOFF CONCENTRATIONS CUTOFF CONC BELOW:
[2019-06-25 17:02] LABS: AMPHETAMINE SCREEN,URINE NEGATIVE (NEGATIVE); BENZODIAZEPINES SCREEN, URINE NEGATIVE (NEGATIVE); COCAINE SCREEN URINE NEGATIVE (NEGATIVE); METHADONE SCREEN, URINE NEGATIVE (NEGATIVE); METHAMPHETAMINES SCREEN, URINE NEGATIVE (NEGATIVE); OPIATE SCREEN, URINE NEGATIVE (NEGATIVE); OXYCODONE SCREEN, URINE NEGATIVE (NEGATIVE); PROPOXYPHENE SCREEN, URINE NEGATIVE (NEGATIVE); TRICYCLIC ANTIDEPRESSANT,URINE NEGATIVE (NEGATIVE)
--- NOTE | 2019-06-25 17:24 | CT Report ---
Reason: AMS Procedure Date: 06/25/2019 Accession Number: [id number] / [id number] Procedure: CT - HEAD WO CPT Code: Final Report FULL RESULT: EXAM: CT HEAD EXAM DATE: 06/25/2019 05:13 PM. CLINICAL HISTORY: AMS. COMPARISON: HEAD W/O 11/15/2018 8:57 PM. TECHNIQUE: Multiaxial CT images were obtained from the foramen magnum to the vertex. Reformats: Sagittal and coronal. IV contrast: None. In accordance with CT protocol optimization, one or more of the following dose reduction techniques were utilized for this exam: automated exposure control, adjustment of mA and/or KV based on patient size, or use of iterative reconstructive technique. FINDINGS: Parenchyma: No intraparenchymal hemorrhage. No evidence of mass, midline shift, or CT findings of infarction. Faustin-white differentiation is distinct. Extraaxial Spaces: Normal for age. No subdural or epidural collections identified. Ventricles: Normal in size and position. Sinuses and Orbits: Chronic appearing opacification of left maxillary sinus. Rest of the imaged paranasal sinuses, orbits, and mastoids show no significant abnormality. Bones: No evidence of fracture or calvarial defect. Other: None. IMPRESSION: No significant intracranial abnormality. RADIA
[2019-06-25 18:17] VITALS: BP 136/65
== END 2019-06-25 18:17 | disposition home or self-care (01) ==
LOC: EDUNIT# → ED 14:49
DX: M54.5 Low back pain (principal); R41.0 Disorientation, unspecified; K72.90 Hepatic failure, unspecified without coma; F03.90 Unspecified dementia, unspecified severity, without behavioral disturbance, psychotic disturbance, mood disturbance, and anxiety; E11.9 Type 2 diabetes mellitus without complications; Z79.4 Long term (current) use of insulin
CPT/HCPCS: 36415; 70450; 80053; 81003; 82140; 83690; 85025; 93005; 99284; A9270; 80306; 81001; 87086

== ENCOUNTER 2020-06-24 10:23 | Inpatient (IN) | payer MEDICARE ==
[2020-06-24] MEDS ORDERED: methylPREDNISolone SUCCINATE 125 MG/2 ML VIAL IVP STA (10:35)
[2020-06-24] MEDS ORDERED: IPRATROPIUM/ALBUTEROL 3 ML NEB INH STA (10:35)
--- NOTE | 2020-06-24 10:37 | ED Physician Documentation ---
PD HPI DYSPNEA - Stated complaint Stated Complaint: SOA - History obtained from History obtained from: Family - Additional information Additional information: 79-year-old woman with history of COPD, not on home O2, hepatitis C presents accompanied by her son who gives all of the history due to her dementia. He noted her pulse oximetry to be in the low 60s this morning with labored breathing. No increasing cough. Over the last 36 hours she has had a temperature up to 100.4. She is fully immunized against Covid. 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 - Present Medications Home Medications: Ambulatory Orders Medication Instructions Recorded Confirmed Atorvastatin [Lipitor] 10 mg PO QDBREAKFAST 09/08/18 06/24/20 Bumetanide 1 mg PO BID 09/08/18 06/24/20 Fluticasone 44 Mcg [Flovent] 2 puffs INH BID 09/08/18 06/24/20 Ibuprofen 200 mg PO QPM 09/08/18 06/24/20 Insulin Aspart [NovoLOG] 0 unit SUBQ ACHS 09/08/18 06/24/20 Insulin Detemir [Levemir Flextouch] 9 - 11 unit SUBQ QPM 09/08/18 06/24/20 Ipratropium/Albuterol [Combivent 1 puffs INH QID 09/08/18 06/24/20 Respimat] Lactulose 20 gm PO BID 09/08/18 06/24/20 Losartan Potassium 100 mg PO QDDINNER 09/08/18 06/24/20 Magnesium Oxide [Mag Ox] 400 mg PO QDBREAKFAST 09/08/18 06/24/20 Sertraline [Zoloft] 100 mg PO QDBREAKFAST 09/08/18 06/24/20 rifAXIMin [Xifaxan] 550 mg PO BID 09/08/18 06/24/20 traZODone [Desyrel] 50 mg PO QPM 09/08/18 06/24/20 Calcium Carbonate [Tums (Calcium 1,500 mg PO DAILY 06/24/20 06/24/20 Carbonate 500mg)] Cholecalciferol (Vitamin D3) 25 mcg PO DAILY 06/24/20 06/24/20 [Vitamin D3] Levothyroxine Sodium 88 mcg PO DAILY 06/24/20 06/24/20 [Levothyroxine] Potassium Chloride 40 meq PO DAILY 06/24/20 06/24/20 - Allergies Allergies/Adverse Reactions: Allergies Allergy/AdvReac Type Severity Reaction Status Date / Time Iodinated Contrast Media Allergy Unknown Verified 11/15/18 20:33 [Iodinated Contrast- Oral and IV Dye] shellfish derived Allergy Anaphylaxis Verified 11/15/18 20:33 - Social History Does the pt smoke?: No Smoking Status: Never smoker Does the pt drink ETOH?: Yes - Immunizations Immunizations: TDAP current <10years PD ED PE NORMAL - Vitals Vital signs reviewed: Yes - General General: Other (She is alert and follows simple commands, but an unhelpful historian.) - HEENT HEENT: PERRL, EOMI - Neck Neck: Supple, no meningeal sign, No bony TTP - Cardiac Cardiac: RRR, No murmur - Respiratory Respiratory: Other (Rhonchorous throughout, mildly labored and tachypneic) - Abdomen Abdomen: Soft, Non tender - Back Back: No CVA TTP, No spinal TTP - Derm Derm: Normal color, Warm and dry - Extremities Extremities: Other (Pressure ulcer on the left heel without signs of infection.) Results - Vitals Vitals: Vital Signs - 24 hr 06/24/20 06/24/20 06/24/20 10:27 10:42 10:54 Temperature 36.1 C L Heart Rate 101 H 97 99 Respiratory 35 H 37 H 28 H Rate Blood Pressure 151/116 H 101/70 O2 Saturation 86 L 94 06/24/20 11:40 Temperature Heart Rate 100 Respiratory 30 H Rate Blood Pressure 116/70 O2 Saturation 93 Oxygen O2 Source Nasal cannula Oxygen Flow Rate 15 - EKG (time done) 1057 Rate: Rate (enter#) (97) Rhythm: NSR (w pacs) [place]: Normal QRS: LVH Ischemia: Normal ST segments Computer interpretation: Agree with computer - Labs Labs: Laboratory Tests 06/24/20 06/24/20 06/24/20 10:52 10:52 10:52 WBC 18.9 H RBC 3.48 L Hgb 10.5 L Hct 33.0 L MCV 94.8 MCH 30.2 MCHC 31.8 L RDW 17.6 H Plt Count 233 MPV 9.0 Neut # (Auto) 16.3 H Lymph # (Auto) 1.3 L Dane # (Auto) 0.8 Eos # (Auto) 0.3 Baso # (Auto) 0.1 Absolute Nucleated RBC 0.00 Nucleated RBC % 0.0 Sodium 138 Potassium 4.3 Chloride 106 Carbon Dioxide 21 Anion Gap 11.0 BUN 24 H Creatinine 1.4 H Estimated GFR (MDRD) 36 L Glucose 294 H Lactic Acid 3.0 H* Calcium 9.3 Total Bilirubin 1.5 H AST 55 H ALT 35 Alkaline Phosphatase 234 H Troponin I High Sens B-Natriuretic Peptide Total Protein 6.4 L Albumin 2.5 L Globulin 3.9 Albumin/Globulin Ratio 0.6 L Nasal Adenovirus (PCR) Nasal B. parapertussis DNA (PCR) Nasal Coronavir 229E PCR Nasal Coronavir HKU1 PCR Nasal Coronavir NL63 PCR Nasal Coronavir OC43 PCR Nasal Enterovir/Rhinovir PCR Nasal Influenza B PCR Nasal Influenza A PCR Nasal Parainfluen 1 PCR Nasal Parainfluen 2 PCR Nasal Parainfluen 3 PCR Nasal Parainfluen 4 PCR Nasal RSV (PCR) Nasal B.pertussis DNA PCR Nasal C.pneumoniae (PCR) Ishan Human Metapneumo PCR Nasal M.pneumoniae (PCR) Nasal SARS-CoV-2 (PCR) 06/24/20 06/24/20 06/24/20 10:52 10:52 11:30 WBC RBC Hgb Hct MCV MCH MCHC RDW Plt Count MPV Neut # (Auto) Lymph # (Auto) Dane # (Auto) Eos # (Auto) Baso # (Auto) Absolute Nucleated RBC Nucleated RBC % Sodium Potassium Chloride Carbon Dioxide Anion Gap BUN Creatinine Estimated GFR (MDRD) Glucose Lactic Acid Calcium Total Bilirubin AST ALT Alkaline Phosphatase Troponin I High Sens 125.8 H* B-Natriuretic Peptide 519 H Total Protein Albumin Globulin Albumin/Globulin Ratio Nasal Adenovirus (PCR) NOT DETECTED Nasal B. parapertussis DNA (PCR) NOT DETECTED Nasal Coronavir 229E PCR NOT DETECTED Nasal Coronavir HKU1 PCR NOT DETECTED Nasal Coronavir NL63 PCR NOT DETECTED Nasal Coronavir OC43 PCR NOT DETECTED Nasal Enterovir/Rhinovir PCR NOT DETECTED Nasal Influenza B PCR NOT DETECTED Nasal Influenza A PCR NOT DETECTED Nasal Parainfluen 1 PCR NOT DETECTED Nasal Parainfluen 2 PCR NOT DETECTED Nasal Parainfluen 3 PCR NOT DETECTED Nasal Parainfluen 4 PCR NOT DETECTED Nasal RSV (PCR) NOT DETECTED Nasal B.pertussis DNA PCR NOT DETECTED Nasal C.pneumoniae (PCR) NOT DETECTED Ishan Human Metapneumo PCR NOT DETECTED Nasal M.pneumoniae (PCR) NOT DETECTED Nasal SARS-CoV-2 (PCR) NOT DETECTED PD MEDICAL DECISION MAKING - ED course ED course: 79-year-old woman presents with profound hypoxemia with a couple of days of low- grade fever at home. No report of increased cough but history is significantly limited by dementia and all the history is from the son. Single view x-ray of the chest shows what is likely a multilobar pneumonia given the constellation of other findings and she has a white count. She did require supplemental oxygen to maintain her saturations. She received Rocephin and azithromycin IV after blood cultures were obtained. Has a mildly high lactate and received some IV fluids, but does not fit the criteria for septic shock necessitating a 30 mL/kg bolus which is good because there is some evidence of mild CHF as well. Dr. Camacho will admit. Departure - Departure Disposition: [facility] DC/Xfer Clinical Impression: Hypoxemia Pneumonia Qualifiers: Pneumonia type: due to unspecified organism Laterality: bilateral Lung location: unspecified part of lung Qualified Code(s): J18.9 - Pneumonia, unspecified organism Condition: Serious Discharge Date/Time: 06/24/20 12:40
--- OUTSIDE RECORDS SUMMARY | 2020-06-24 10:39 | EXTERNAL MEDICAL SUMMARY RPT | Continuity of Care Document ---
:1940 Demographics Phone Unavailable Preferred Language Unknown Marital Status Unknown Shinto Affiliation Unknown Race Unknown Ethnic Group Unknown Author Organization [facility] Address [address] [id number] Phone Social History date description facility [phone]
[2020-06-24 10:58] LABS: BASOPHILS # (AUTO) 0.1 10^3/uL (0.0-0.1); BASOPHILS % (AUTO) 0.5 %; EOSINOPHILS # (AUTO) 0.3 10^3/uL (0.0-0.7); EOSINOPHILS % (AUTO) 1.6 %; HGB - HEMOGLOBIN 10.5 g/dL (12.0-16.0); LYMPHOCYTES # (AUTO) 1.3 10^3/uL (1.5-3.5); LYMPHOCYTES % (AUTO) 6.6 %; MEAN CORPUSCULAR HEMOGLOBIN 30.2 pg (27.0-31.0); MEAN CORPUSCULAR HGB CONC 31.8 g/dL (32.0-36.0); MEAN CORPUSCULAR VOLUME 94.8 fL (81.0-99.0); MONOCYTES # (AUTO) 0.8 10^3/uL (0.0-1.0); MONOCYTES % (AUTO) 4.1 %; NEUTROPHILS # (AUTO) 16.3 10^3/uL (1.5-6.6); NEUTROPHILS % (AUTO) 86.5 %; PLT - PLATELET COUNT 233 10^3/uL (130-450); RED BLOOD COUNT 3.48 10^6/uL (4.20-5.40); RED CELL DISTRIBUTION WIDTH 17.6 % (12.0-15.0); WHITE BLOOD COUNT 18.9 x10^3/uL (4.8-10.8)
[2020-06-24 11:12] LABS: ALBUMIN 2.5 g/dL (3.2-5.5); ALBUMIN/GLOBULIN RATIO 0.6 (1.0-2.2); BILIRUBIN,TOTAL 1.5 mg/dL (0.2-1.0); CALCIUM 9.3 mg/dL (8.5-10.3); CREATININE 1.4 mg/dL (0.4-1.0); POTASSIUM 4.3 mmol/L (3.5-5.0); TOTAL PROTEIN 6.4 g/dL (6.7-8.2)
[2020-06-24] MEDS ORDERED: AZITHROMYCIN INJ 500 MG in SODIUM CHLORIDE 0.9% 250 ML IV STA (11:15)
[2020-06-24] MEDS ORDERED: cefTRIAXone 1 GM in SODIUM CHLORIDE 0.9% MINIBAG 100 ML IV STA (11:15)
--- NOTE | 2020-06-24 11:45 | XRAY Report ---
PROCEDURE: Chest 1 View X-Ray INDICATIONS: dyspnea TECHNIQUE: One view of the chest was acquired. COMPARISON: 11/15/2018. FINDINGS: Surgical changes and devices: None. Lungs and pleura: No pleural effusions or pneumothorax. Diffuse opacification of the lungs bilateral ly which could represent pulmonary edema or multilobar pneumonia. Mediastinum: Mediastinal contours appear normal. Heart size is normal. Bones and chest wall: No suspicious bony lesions. Overlying soft tissues appear unremarkable. IMPRESSION: Bilateral diffuse lung opacities compatible with pulmonary edema or multilobar pneumonia. Reviewed by: Rosa Castillo MD, PhD on 06/24/2020 11:44 AM PDT Approved by: Rosa Castillo MD, PhD on 06/24/2020 11:44 AM PDT Station ID: [id number]
[2020-06-24] MEDS ORDERED: SODIUM CHLORIDE 0.9% 1,000 ML IV STA (11:53)
[2020-06-24] MEDS ORDERED: ACETAMINOPHEN 325 MG TABLET PO PRN (11:57)
[2020-06-24] MEDS ORDERED: oxyCODONE 5 MG TABLET PO PRN (11:57)
[2020-06-24] MEDS ORDERED: ONDANSETRON 4 MG/2 ML VIAL IVP PRN (11:57)
[2020-06-24] MEDS ORDERED: ONDANSETRON ODT 4 MG TABLET TL PRN (11:57)
[2020-06-24] MEDS ORDERED: IBUPROFEN 400 MG TABLET PO PRN (11:57)
[2020-06-24] MEDS ORDERED: ALBUTEROL NEB 2.5 MG/3 ML INH PRN (12:00)
--- OUTSIDE RECORDS SUMMARY | 2020-06-24 12:30 | EXTERNAL MEDICAL SUMMARY RPT | Continuity of Care Document ---
:1940 Demographics Phone Unavailable Preferred Language Unknown Marital Status Unknown Baptist Affiliation Unknown Race Unknown Ethnic Group Unknown Author Organization [facility] Address [address] [id number] Phone Social History date description facility [phone]
[2020-06-24 12:37] LABS: B. PARAPERTUSSIS- RESP PCR PAN NOT DETECTED; B. PERTUSSIS- RESP PCR PANEL NOT DETECTED; C. PNEUMONIAE- RESP PCR PANEL NOT DETECTED; CORONAVIRUS 229E-RESP PCR NOT DETECTED; CORONAVIRUS HKU1-RESP PCR NOT DETECTED; CORONAVIRUS NL63-RESP PCR NOT DETECTED; CORONAVIRUS OC43-RESP PCR NOT DETECTED; HUMAN METAPNEUMOVIRUS NOT DETECTED; INFLUENZA A- RESP PCR PANEL NOT DETECTED; INFLUENZA B - RESP PCR PANEL NOT DETECTED; M. PNEUMONIAE- RESP PCR PANEL NOT DETECTED; PARAINFLUENZA VIRUS 1 NOT DETECTED; PARAINFLUENZA VIRUS 2 NOT DETECTED; PARAINFLUENZA VIRUS 3 NOT DETECTED; PARAINFLUENZA VIRUS 4 NOT DETECTED; RHINOVIRUS/ENTEROVIRUS NOT DETECTED; RSV- RESP PCR PANEL NOT DETECTED; SARS-CoV-2 -RESP PCR PANEL NOT DETECTED
[2020-06-24] MEDS: SODIUM CHLORIDE 0.9% 1,000 ML IV SCH ×2 (13:00→19:39)
[2020-06-24] MEDS: LACTULOSE 10 GM /15 ML UDC PO SCH ×2 (13:47→22:20)
[2020-06-24 14:42] LABS: LACTIC ACID, VENOUS 2.5 mmol/L (0.5-2.2)
--- NOTE | 2020-06-24 14:51 | HISTORY & PHYSICAL EXAMINATION ---
Chief Complaint - Chief Complaint Chief Complaint: SOB low oxygen levels at home History of Present Illness - Admitted From Admitted From:: Home by POV - History Obtained From Records Reviewed: [facility] History obtained from: Son, ED provider Exam Limitations: Pt has dementia, unable to provide meaningful H&P information. - History of Present Illness HPI Comment/Other: Iris is 79 y.o. female, who was brought in by her son Nabeel for shortness of breath and oxygen desaturation. 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 Her son is providing all of her history due the patients severe dementia. She only able to provide limited one word answers, and son states this not far from neuro baseline. Over the past 3 days the patient had had low grade fever, without other symptoms. Before this was in her normal state. Patient has history of UTI and had just finished a course antibiotics, though her son did not know which antibiotic. This morning her caregiver found the patient with labored breathing, blue tinged lips, and home SaO2 probed showed 61%. The patients son then brought her into the ED for evaluation. On ED admission she was hypoxic requiring NRB for stabilization. She has no significant changes in mentation, or respiratory distress. Labs show elevated troponin and BNP. EKG was completed and did not show ST changes. The patient denies chest pain or pressure and her son states she has had no indication of pain prior to this episode. She also has no prior history of heart failure. XR showed bilateral diffuse lung opacities, WBC elevated 18.9, lactic acid level 3.0. Nasal PCR was unremarkable. Pt has had her COVID vaccine. Septic fluid challenge was deferred due to increased BNP and currently normotensive. History - Past Medical History Cardiovascular: reports: Hypertension, Murmur Respiratory: reports: COPD Neuro: reports: Dementia Endocrine/Autoimmune: reports: Type 2 diabetes, HyPOthyroidism GI: reports: Other (Liver disease, from Hep C. (Hep C. resolved)) SALES TRAINER: reports: None : reports: Incontinence, Chronic bladder infection (Most recent infection 2wks ago. completed 7 day antibiotic course. ), Kidney stones HEENT: reports: Other Psych: reports: Depression Musculoskeletal: reports: None Derm: reports: Psoriasis MRSA Hx?: No - Past Surgical History Ortho: reports: Carpal Tunnel surgery /SALES TRAINER: reports: Hysterectomy - Family & Social History Family History: Mother: , Diabetes, Type 2, Hypertension, Father: , Diabetes, Type 2 Living arrangement: At home Living Situation: With family Social History Notes: Pt currently lives with her son and his girlfriend in [place]. They have a restaurant hourly team member for partial care but her son provides most of her care due to her progressive dementia. - Substance History Use: Uses substance without health or social issues: NONE - POLST Patient has POLST: Yes POLST Status: DNR Meds/Allgy - Home Medications Home Medications: Ambulatory Orders Medication Instructions Recorded Confirmed Atorvastatin [Lipitor] 10 mg PO QDBREAKFAST 09/08/18 06/24/20 Bumetanide 1 mg PO BID 09/08/18 06/24/20 Fluticasone 44 Mcg [Flovent] 2 puffs INH BID 09/08/18 06/24/20 Ibuprofen 200 mg PO QPM 09/08/18 06/24/20 Insulin Aspart [NovoLOG] 0 unit SUBQ ACHS 09/08/18 06/24/20 Insulin Detemir [Levemir Flextouch] 9 - 11 unit SUBQ QPM 09/08/18 06/24/20 Ipratropium/Albuterol [Combivent 1 puffs INH QID 09/08/18 06/24/20 Respimat] Lactulose 20 gm PO BID 09/08/18 06/24/20 Losartan Potassium 100 mg PO QDDINNER 09/08/18 06/24/20 Magnesium Oxide [Mag Ox] 400 mg PO QDBREAKFAST 09/08/18 06/24/20 Sertraline [Zoloft] 100 mg PO QDBREAKFAST 09/08/18 06/24/20 rifAXIMin [Xifaxan] 550 mg PO BID 09/08/18 06/24/20 traZODone [Desyrel] 50 mg PO QPM 09/08/18 06/24/20 Calcium Carbonate [Tums (Calcium 1,500 mg PO DAILY 06/24/20 06/24/20 Carbonate 500mg)] Cholecalciferol (Vitamin D3) 25 mcg PO DAILY 06/24/20 06/24/20 [Vitamin D3] Levothyroxine Sodium 88 mcg PO DAILY 06/24/20 06/24/20 [Levothyroxine] Potassium Chloride 40 meq PO DAILY 06/24/20 06/24/20 - Allergies Allergies/Adverse Reactions: Allergies Allergy/AdvReac Type Severity Reaction Status Date / Time Iodinated Contrast Media Allergy Unknown Verified 11/15/18 20:33 [Iodinated Contrast- Oral and IV Dye] shellfish derived Allergy Anaphylaxis Verified 11/15/18 20:33 Review of Systems - Constitutional Constitutional: reports: Fatigue, Fever, Night sweats (New in that few weeks). denies: Chills, Poor appetite - Eyes Eyes: denies: Pain - Ears, Nose & Throat Ears, Nose & Throat: reports: Vertigo (Worsing dizziness for the past 3 weeks. Requires her son to provide support when standing). denies: Ear pain, Hearing loss - Cardiovascular Cariovascular: denies: Chest pain, Edema - Respiratory Respiratory: reports: Cough, Snoring. denies: Sputum production, Hemoptysis, Orthopnea, SOB at rest, SOB with exertion - Gastrointestinal Gastrointestinal: reports: Diarrhea (Related to lactulose, son titrates dosing of lactulose to 1-2 liquid BM per day). denies: Abdominal pain, Abdominal distention - Genitourinary Genitourinary: reports: Incontinence - Musculoskeletal Musculoskeletal: denies: Muscle pain, Back pain - Integumentary Integumentary: reports: Dryness, Nail changes - Neurological Neurological: reports: Pre-existing deficit - Psychiatric Psychiatric: reports: Depression - Endocrine Endocrine: reports: Intolerance to cold - Hematologic/Lymphatic Hematologic/Lymphatic: denies: Anemia, Bruising (ROS obtained with son Nabeel, due dementia.) - Other Findings Other Findings: ROS completed with son jazzy patient's mental status Prior Level of Functionality: Pt lives at home with her son who provides most her care due to her dementia. She is able feed herself, but unable to dress herself and is incontinent of stool and urine. Exam - Vital Signs Reviewed Vital Signs: Yes Vital Signs: Vital Signs x48h Temp Pulse Pulse Resp BP BP Pulse Ox 06/24/20 14:00 94 27 H 105/75 88 L 06/24/20 13:37 22 89 L 06/24/20 13:00 36.7 C 99 28 H 101/60 88 L 06/24/20 12:20 37.1 C 98 27 H 99/52 L 92 06/24/20 12:01 99 33 H 98/26 L 93 06/24/20 11:40 100 30 H 116/70 93 06/24/20 10:54 99 28 H 101/70 94 06/24/20 10:42 97 37 H 06/24/20 10:27 36.1 C L 101 H 35 H 151/116 H 86 L - Physical Exam General Appearance: positive: No acute distress, Other (pt is 4'1" and 55kg. In no apparent distress. Pt son provided a tactile pillow for patient, whcih has been very effective) Eyes Bilateral: positive: Normal inspection, EOMI, No lid inflammation ENT: positive: ENT inspection nml, Dry mucous membranes Neck: positive: Nml inspection, No JVD Respiratory: positive: Chest non-tender, Rhonchi, Other (Increased WOB) Cardiovascular: positive: Regular rate & rhythm, No murmur, No gallop Peripheral Pulses: positive: 2+ Abdomen: positive: No organomegaly, Nml bowel sounds, No distention, Tenderness (Tender to palpation to RUQ) Back: positive: Nml inspection Skin: positive: Color nml, Decubitus (Left heel Decub. with intact eschar. Has been cleaned with iodine by electrician last week), Other (Right great toe fungal infection per son, nail is clipped and cleaned with iodine by podiatry.) Extremities: positive: Non-tender, Full ROM Neurologic/Psychiatric: positive: Sensation nml, Disoriented to place, Disoriented to time, Weakness, Other Sepsis Event Note (H) - Evaluation Current Stage of Sepsis: Severe sepsis Possible source of Sepsis: positive: Pulmonary - Sepsis Criteria Sepsis Criteria: Recorded Respiratory Rate greater than 20, Respiratory: Increasing oxygen requirements, WBC count greater than 10% bands, WBC count greater than 12,000 or less than 4000 Conclusion/Plan - Problem List (1) Acute respiratory failure with hypoxia Conclusion/Plan: Likely related to pneumonia. Requiring NRB on admission. Continue monitor and maintain SaO2>88% with supplemental oxygen. Continue to treat pneumonia with empiric antibiotics. (2) Sepsis Conclusion/Plan: Comes with elevated WBC, RR, lactic acidosis and likely pneumonia. Discussed Sepsis fluid bolus, given her elevated BNP and normal blood pressure decided to hold fluid bolus. Will readdress if she becomes hypotensive or end organ pro perfusion. Qualifiers: Sepsis type: sepsis due to unspecified organism Sepsis acute organ dysfunction status: without acute organ dysfunction Qualified Code(s): A41.9 - Sepsis, unspecified organism (3) NSTEMI (non-ST elevated myocardial infarction) Conclusion/Plan: No EKG changes. Differential includes demand ischemia, PE, Uptrending troponin. Unable to do CTA chest due iodine allergy, VQ perfusion study has been ordered. Will repeat troponin. Placed on Lovenox and metoprolol. (4) Pneumonia Conclusion/Plan: Community Acquired PNA, with hypoxia. Pt received Rocephin and Azthromyocin in the ED. Blood cultures were drawn prior to antibiotics. Nasal PCR was unremarkable. Will continue empiric antibiotics. Continue oxygen therapy for Sa02 > 88% given history of COPD. Qualifiers: Pneumonia type: due to unspecified organism Laterality: bilateral Lung location: unspecified part of lung Qualified Code(s): J18.9 - Pneumonia, unspecified organism (5) COPD (chronic obstructive pulmonary disease) Conclusion/Plan: Likely not exacerbation given XR finding, lactic acidosis. Switching inhalers to nebs in the inpatient setting. Qualifiers: COPD type: unspecified COPD Qualified Code(s): J44.9 - Chronic obstructive pulmonary disease, unspecified (6) HTN (hypertension) Conclusion/Plan: Normally on Lorsartan outpatient. Holding lorsartan for now. Due NSTEMI, patient placed on metoprolol. If BP stable can consider adding lorsartan. Qualifiers: Hypertension type: essential hypertension Qualified Code(s): I10 - Essential (primary) hypertension (7) Diabetes mellitus type 2 with complications Conclusion/Plan: Pt is hyperglycemic on admission, likely stress induced from infection. Pt in insulin dependent. Will manage inpatient with lantus 10U and aspart per sliding scale. Goal BS 140-180. (8) Hepatic cirrhosis due to chronic hepatitis C infection Conclusion/Plan: Hep. C induced cirrhosis. History of esophageal varices with banding in the past. Hx of hyperammonemia, encephalopathy managed with rifaximin and lactulose. Will continue home meds. Will check ammonia level if any changes in mentation, currently at her baseline per son. (9) Acute renal failure superimposed on stage 3 chronic kidney disease Conclusion/Plan: Current Creatinine 1.2 with estimated GFR of 36. Avoid nephrotoxic meds as possible. Qualifiers: Acute renal failure type: unspecified Chronic kidney disease stage 3 subtype: stage 3a (GFR 45-59) Qualified Code(s): N17.9 - Acute kidney failure, unspecified; N18.31 - Chronic kidney disease, stage 3a - Lab Results Lab results reviewed: Yes Fish Bones: 06/24/20 10:52 06/24/20 10:52
[2020-06-24] MEDS: IPRATROPIUM/ALBUTEROL 3 ML NEB INH SCH ×2 (15:07→18:59)
[2020-06-24] MEDS ORDERED: ENOXAPARIN 60 MG/0.6 ML SYRINGE SUBQ SCH (16:00)
[2020-06-24] MEDS: ENOXAPARIN 60 MG/0.6 ML SYRINGE SUBQ SCH (16:25)
[2020-06-24] MEDS: ATORVASTATIN 40 MG TABLET PO SCH ×2 (16:25→21:55)
[2020-06-24] MEDS: ASPIRIN 325 MG TABLET PO SCH (16:25)
[2020-06-24] MEDS: SACCHAROMYCES BOULARDII 250 MG CAPSULE PO SCH (16:27)
[2020-06-24] MEDS: SODIUM CHLORIDE FLUSH 0.9% 10 ML SYRINGE IVP SCH (16:40)
[2020-06-24] MEDS: INSULIN ASPART 300 UNIT/3 ML PEN SUBQ SCH ×2 (17:43→20:34)
[2020-06-24 18:05] LABS: BILIRUBIN,URINE NEGATIVE (NEGATIVE); GLUCOSE, URINE (UA) 250 mg/dL (NEGATIVE); KETONES,URINE (UA) NEGATIVE (NEGATIVE); LEUKOCYTE ESTERASE, URINE SMALL (NEGATIVE); NITRITE,URINE NEGATIVE (NEGATIVE); OCCULT BLOOD,URINE NEGATIVE (NEGATIVE); PH,URINE 5.5 PH (5.0-7.5); PROTEIN,URINE NEGATIVE (NEGATIVE); UROBILINOGEN,URINE 0.2 (NORMAL) E.U./dL (NORMAL)
[2020-06-24 18:07] LABS: AMORPHOUS SEDIMENT,UR Few /LPF; BACTERIA,URINE Few /HPF (None Seen); CLARITY,URINE CLEAR (CLEAR); MUCUS,URINE Few Strands; RBC,URINE 0-5 /HPF (0-5); SQUAMOUS EPITHELIAL CELL,UR FEW Squamous (<= Few); WBC,URINE 0-3 /HPF (0-5)
[2020-06-24] MEDS: BUDESONIDE 0.5 MG/2 ML NEB INH SCH (18:59)
[2020-06-24] MEDS: FORMOTEROL FUMARATE NEB 20 MCG/2 ML INH SCH (18:59)
[2020-06-24 19:29] LABS: LACTIC ACID, VENOUS 3.8 mmol/L (0.5-2.2)
[2020-06-24] MEDS: METOPROLOL TARTRATE 25 MG TABLET PO SCH (20:18)
[2020-06-24] MEDS: rifAXIMin 550 MG TABLET PO SCH (20:19)
[2020-06-24] MEDS: MORPHINE 2 MG/ML CARPUJECT IVP PRN ×2 (20:22→22:20)
[2020-06-24] MEDS: SODIUM CHLORIDE FLUSH 0.9% 10 ML SYRINGE IVP PRN (20:23)
[2020-06-24] MEDS ORDERED: LACTATED RINGERS 1,000 ML IV ONE ×2 (20:31→22:25)
[2020-06-24] MEDS: INSULIN GLARGINE 300 UNIT/3 ML PEN SUBQ SCH ×2 (20:33→20:34)
[2020-06-24] MEDS ORDERED: INSULIN REGULAR HUMAN 300 UNIT/3 ML VIAL IVP ONE (22:25)
[2020-06-24] MEDS ORDERED: LACTATED RINGERS 500 ML IV ONE (22:34)
[2020-06-25] MEDS: MORPHINE 2 MG/ML CARPUJECT IVP PRN ×8 (00:55→19:37)
[2020-06-25] MEDS: SODIUM CHLORIDE FLUSH 0.9% 10 ML SYRINGE IVP SCH ×3 (00:57→17:00)
[2020-06-25] MEDS: ENOXAPARIN 60 MG/0.6 ML SYRINGE SUBQ SCH ×2 (04:27→16:05)
[2020-06-25] MEDS: SODIUM CHLORIDE FLUSH 0.9% 10 ML SYRINGE IVP PRN (04:27)
[2020-06-25] MEDS: LACTULOSE 10 GM /15 ML UDC PO SCH ×2 (04:49→14:05)
[2020-06-25 05:34] LABS: BASOPHILS % (AUTO) 0.3 %; HGB - HEMOGLOBIN 9.2 g/dL (12.0-16.0); LYMPHOCYTES % (AUTO) 6.8 %; MEAN CORPUSCULAR HEMOGLOBIN 30.3 pg (27.0-31.0); MEAN CORPUSCULAR HGB CONC 31.7 g/dL (32.0-36.0); MEAN CORPUSCULAR VOLUME 95.4 fL (81.0-99.0); MEAN PLATELET VOLUME 9.5 fL (7.9-10.8); MONOCYTES % (AUTO) 4.3 %; NEUTROPHILS % (AUTO) 87.7 %; PLT - PLATELET COUNT 257 10^3/uL (130-450); RED BLOOD COUNT 3.04 10^6/uL (4.20-5.40); RED CELL DISTRIBUTION WIDTH 17.7 % (12.0-15.0); WHITE BLOOD COUNT 25.7 x10^3/uL (4.8-10.8)
[2020-06-25 05:39] LABS: CALCIUM 8.2 mg/dL (8.5-10.3); CREATININE 1.3 mg/dL (0.4-1.0); POTASSIUM 4.6 mmol/L (3.5-5.0)
[2020-06-25 05:43] LABS: ABNORMAL LYMPHS % (MANUAL) 0 %
[2020-06-25] MEDS: metroNIDAZOLE 500 MG/100 ML 500 MG/100 ML BAG IV SCH ×2 (06:09→14:05)
[2020-06-25 06:20] LABS: BAND NEUTROPHILS % (MANUAL) 10 %; DIFFERENTIAL COMMENT MANUAL DIFFERENTIAL; LYMPHOCYTES # (MANUAL) 1.8 10^3/uL (1.5-3.5); LYMPHOCYTES % (MANUAL) 7 %; MONOCYTES # (MANUAL) 2.6 10^3/uL (0.0-1.0); NEUTROPHILS # (MANUAL) 21.3 10^3/uL (1.5-6.6); PLATELET ESTIMATE, MANUAL NORMAL (130-450,000) (NORMAL); RBC MORPHOLOGY (MULTIPLE) NORMAL APPEARANCE (NORMAL)
[2020-06-25] MEDS: IPRATROPIUM/ALBUTEROL 3 ML NEB INH SCH ×2 (07:45→11:15)
[2020-06-25] MEDS: BUDESONIDE 0.5 MG/2 ML NEB INH SCH (07:45)
[2020-06-25] MEDS: FORMOTEROL FUMARATE NEB 20 MCG/2 ML INH SCH (07:45)
[2020-06-25] MEDS: INSULIN ASPART 300 UNIT/3 ML PEN SUBQ SCH ×3 (08:01→17:03)
[2020-06-25] MEDS: SACCHAROMYCES BOULARDII 250 MG CAPSULE PO SCH ×2 (08:15→17:00)
[2020-06-25] MEDS: ASPIRIN 325 MG TABLET PO SCH (08:15)
[2020-06-25] MEDS: METOPROLOL TARTRATE 25 MG TABLET PO SCH (08:15)
[2020-06-25] MEDS: rifAXIMin 550 MG TABLET PO SCH (08:15)
[2020-06-25] MEDS ORDERED: cefTRIAXone 1 GM in SODIUM CHLORIDE 0.9% MINIBAG 100 ML IV SCH (09:00)
[2020-06-25] MEDS ORDERED: INSULIN GLARGINE 300 UNIT/3 ML PEN SUBQ ONE (09:00)
[2020-06-25] MEDS ORDERED: AZITHROMYCIN INJ 500 MG in SODIUM CHLORIDE 0.9% 250 ML IV SCH (09:00)
[2020-06-25 12:26] LABS: ESTIMATED AVERAGE GLUCOSE 186 mg/dL (70-100); HEMOGLOBIN A1c% 8.1 % (4.27-6.07)
[2020-06-25] MEDS ORDERED: MIN OIL/DIMETHICON/COCONUT OIL 92 GM TUBE TOP PRN (12:59)
[2020-06-25 19:02] VITALS: BP 113/56
--- NOTE | 2020-06-25 19:27 | PROVIDER PROGRESS NOTE ---
Subjective - Prog Note Date Prog Note Date: 06/25/20 Prog Note Time: 19:32 - Subjective Subjective: This lady was alert, speaking to us and giving us appropriate monosyllabic responses yesterday. Over the course of the evening into today she has become more more obtunded and she is required more and more oxygen. She is not responding to IV antibiotics, steroids, nebs, IV fluids. Current Medications - Current Medications Current Medications: Active Medications Acetaminophen (Acetaminophen 325 Mg Tablet) 650 mg PO Q4HR PRN PRN Reason: Pain 1 to 4 Albuterol (Albuterol Neb 2.5 Mg/3 Ml) 2.5 mg INH Q4HR PRN PRN Reason: Wheezing Aspirin (Aspirin 325 Mg Tablet) 325 mg PO DAILYWM [facility] Last Admin: 06/25/20 08:15 Dose: 325 mg Documented by: Atorvastatin Calcium (Atorvastatin 40 Mg Tablet) 40 mg PO QPM [facility] Last Admin: 06/24/20 21:55 Dose: Not Given Documented by: Budesonide (Budesonide 0.5 Mg/2 Ml Neb) 0.5 mg INH RTBID [facility] Last Admin: 06/25/20 07:45 Dose: 0.5 mg Documented by: Enoxaparin Sodium (Enoxaparin 60 Mg/0.6 Ml Syringe) 60 mg SUBQ Q12H [facility] Last Admin: 06/25/20 16:05 Dose: 60 mg Documented by: Formoterol Fumarate (Formoterol Fumarate Neb 20 Mcg/2 Ml) 20 mcg INH RTBID [facility] Last Admin: 06/25/20 07:45 Dose: 20 mcg Documented by: Azithromycin 500 mg/ Sodium (Chloride) 250 mls @ 250 mls/hr IV DAILY [facility] Stop: 06/27/20 09:59 Last Infusion: 06/25/20 09:10 Dose: Infused Documented by: Ceftriaxone Sodium 1 gm/ (Sodium Chloride) 100 mls @ 200 mls/hr IV DAILY [facility] Stop: 06/29/20 09:29 Last Infusion: 06/25/20 10:20 Dose: Infused Documented by: Metronidazole (Flagyl 500 Mg/100 Ml) 500 mg in 100 mls @ 100 mls/hr IV Q8H [facility] Last Infusion: 06/25/20 15:05 Dose: Infused Documented by: Ibuprofen (Ibuprofen 400 Mg Tablet) 400 mg PO Q4HR PRN PRN Reason: Pain 1 to 4 Insulin Aspart (Insulin Aspart 300 Unit/3 Ml Pen) 2 - 10 unit SUBQ 0800,1200,1700,2100 [facility]; Protocol Last Admin: 06/25/20 17:03 Dose: 4 unit Documented by: Insulin Glargine (Insulin Glargine 300 Unit/3 Ml Pen) 20 unit SUBQ QPM [facility] Lactulose (Lactulose 10 Gm /15 Ml Udc) 10 gm PO TID [facility] Last Admin: 06/25/20 14:05 Dose: 10 gm Documented by: Metoprolol Tartrate (Metoprolol Tartrate 25 Mg Tablet) 25 mg PO BID [facility] Last Admin: 06/25/20 08:15 Dose: 25 mg Documented by: Mineral Oil (Min Oil/Dimethicon/Coconut Oil 92 Gm Tube) 1 applic TOP PRN PRN PRN Reason: Skin Care Last Admin: 06/25/20 14:00 Dose: 1 applic Documented by: Morphine Sulfate (Morphine 2 Mg/Ml Carpuject) 2 mg IVP Q2HR PRN PRN Reason: PAIN Last Admin: 06/25/20 17:30 Dose: 2 mg Documented by: Ondansetron HCl (Ondansetron Odt 4 Mg Tablet) 4 mg TL Q6HR PRN PRN Reason: Nausea / Vomiting Ondansetron HCl (Ondansetron 4 Mg/2 Ml Vial) 4 mg IVP Q6HR PRN PRN Reason: Nausea / Vomiting Oxycodone HCl (Oxycodone 5 Mg Tablet) 5 mg PO Q4HR PRN PRN Reason: Pain 5 to 7 Rifaximin (Rifaximin 550 Mg Tablet) 550 mg PO BID [facility] Last Admin: 06/25/20 08:15 Dose: 550 mg Documented by: Saccharomyces Boulardii (Saccharomyces Boulardii 250 Mg Capsule) 250 mg PO BIDWM [facility] Last Admin: 06/25/20 17:00 Dose: 250 mg Documented by: Sodium Chloride (Sodium Chloride Flush 0.9% 10 Ml Syringe) 10 ml IVP PRN PRN PRN Reason: NEEDED PER PROVIDER ORDERS Last Admin: 06/25/20 04:27 Dose: 10 ml Documented by: Sodium Chloride (Sodium Chloride Flush 0.9% 10 Ml Syringe) 10 ml IVP 0100,0900,1700 [facility] Last Admin: 06/25/20 17:00 Dose: 10 ml Documented by: Atorvastatin [Lipitor] 10 mg PO QDBREAKFAST 09/08/18 Bumetanide 1 mg PO BID 09/08/18 Fluticasone 44 Mcg [Flovent] 2 puffs INH BID 09/08/18 Ibuprofen 200 mg PO QPM 09/08/18 Insulin Aspart [NovoLOG] 0 unit SUBQ ACHS 09/08/18 Insulin Detemir [Levemir Flextouch] 9 - 11 unit SUBQ QPM 09/08/18 Ipratropium/Albuterol [Combivent Respimat] 1 puffs INH QID 09/08/18 Lactulose 20 gm PO BID 09/08/18 Losartan Potassium 100 mg PO QDDINNER 09/08/18 Magnesium Oxide [Mag Ox] 400 mg PO QDBREAKFAST 09/08/18 Sertraline [Zoloft] 100 mg PO QDBREAKFAST 09/08/18 rifAXIMin [Xifaxan] 550 mg PO BID 09/08/18 traZODone [Desyrel] 50 mg PO QPM 09/08/18 Calcium Carbonate [Tums (Calcium Carbonate 500mg)] 1,500 mg PO DAILY 06/24/20 Cholecalciferol (Vitamin D3) [Vitamin D3] 25 mcg PO DAILY 06/24/20 Levothyroxine Sodium [Levothyroxine] 88 mcg PO DAILY 06/24/20 Potassium Chloride 40 meq PO DAILY 06/24/20 Objective - Vital Signs/Intake & Output Reviewed Vital Signs: Yes Vital Signs: Vital Signs Temp Pulse Pulse Resp BP Pulse Ox 06/25/20 19:00 69 16 113/56 L 91 L 06/25/20 18:00 69 17 101/55 L 90 L 06/25/20 17:00 69 17 112/49 L 89 L 06/25/20 16:15 65 15 06/25/20 16:00 36.6 C 68 16 109/56 L 90 L Intake & Output: Intake & Output 06/22/20 06/23/20 06/24/20 06/25/20 23:59 23:59 23:59 23:59 Intake Total 3355 2702.000 Output Total 225 100 Balance 3130 2602.000 - Objective General Appearance: positive: Moderate distress, Other (Mouth open breathing with high flow nasal cannula now, laying flat on her back not responsive to voice or pain) Eyes Bilateral: positive: PERRL ENT: positive: Dry mucous membranes Neck: positive: No JVD. negative: Stiff neck Respiratory: positive: Wheezes, Rhonchi, Other (Tachypnea and use of accessory muscles with her rib cage. Occasional grunting.) Cardiovascular: positive: Regular rate & rhythm, Tachycardia, Systolic murmur, Friction rub. negative: Gallop/S4 Abdomen: positive: Other (Hypoactive bowel sounds, nondistended) Skin: positive: Dry, Pallor, Other (cool hands and feet) - Lab Results Fish Bones: 06/25/20 04:25 06/25/20 04:25 Other Labs: Lab Results x24hrs 06/25/20 06/25/20 06/25/20 Range/Units 16:54 11:36 07:43 WBC (4.8-10.8) x10^3/uL RBC (4.20-5.40) 10^6/uL Hgb (12.0-16.0) g/dL Hct (37.0-47.0) % MCV (81.0-99.0) fL MCH (27.0-31.0) pg MCHC (32.0-36.0) g/dL RDW (12.0-15.0) % Plt Count (130-450) 10^3/uL MPV (7.9-10.8) fL Neut # (Auto) Lymph # (Auto) Hendricks # (Auto) Eos # (Auto) Baso # (Auto) Absolute Nucleated RBC Total Counted Band Neuts % (Manual) (0 - 10) % Abnorm Lymph % (Manual) % Nucleated RBC % Neutrophils # (Manual) (1.5-6.6) 10^3/uL Lymphocytes # (Manual) (1.5-3.5) 10^3/uL Monocytes # (Manual) (0.0-1.0) 10^3/uL Eosinophils # (Manual) (0-0.7) 10^3/uL Basophils # (Manual) (0-0.1) 10^3/uL Differential Comment Platelet Estimate (NORMAL) RBC Morph Micro Appear (NORMAL) Sodium (135-145) mmol/L Potassium (3.5-5.0) mmol/L Chloride (101-111) mmol/L Carbon Dioxide (21-32) mmol/L Anion Gap (6-13) BUN (6-20) mg/dL Creatinine (0.4-1.0) mg/dL Estimated GFR (MDRD) (>89) Glucose (70-100) mg/dL POC Whole Bld Glucose 220 H 302 H 308 H (70 - 100) mg/dL Estimat Average Glucose (70-100) mg/dL Hemoglobin A1c % (4.27-6.07) % Lactic Acid (0.5-2.2) mmol/L Calcium (8.5-10.3) mg/dL Troponin I High Sens (2.3-14.8) ng/L 06/25/20 06/25/20 06/25/20 Range/Units 04:25 04:25 04:25 WBC 25.7 H (4.8-10.8) x10^3/uL RBC 3.04 L (4.20-5.40) 10^6/uL Hgb 9.2 L (12.0-16.0) g/dL Hct 29.0 L (37.0-47.0) % MCV 95.4 (81.0-99.0) fL MCH 30.3 (27.0-31.0) pg MCHC 31.7 L (32.0-36.0) g/dL RDW 17.7 H (12.0-15.0) % Plt Count 257 (130-450) 10^3/uL MPV 9.5 (7.9-10.8) fL Neut # (Auto) Not Reportable Lymph # (Auto) Not Reportable Hendricks # (Auto) Not Reportable Eos # (Auto) Not Reportable Baso # (Auto) Not Reportable Absolute Nucleated RBC Not Reportable Total Counted 100 Band Neuts % (Manual) 10 (0 - 10) % Abnorm Lymph % (Manual) 0 % Nucleated RBC % Not Reportable Neutrophils # (Manual) 21.3 H (1.5-6.6) 10^3/uL Lymphocytes # (Manual) 1.8 (1.5-3.5) 10^3/uL Monocytes # (Manual) 2.6 H (0.0-1.0) 10^3/uL Eosinophils # (Manual) 0.0 (0-0.7) 10^3/uL Basophils # (Manual) 0.0 (0-0.1) 10^3/uL Differential Comment MANUAL DIFFERENTIAL Platelet Estimate NORMAL (130-450,000) (NORMAL) RBC Morph Micro Appear NORMAL APPEARANCE (NORMAL) Sodium 134 L (135-145) mmol/L Potassium 4.6 (3.5-5.0) mmol/L Chloride 106 (101-111) mmol/L Carbon Dioxide 19 L (21-32) mmol/L Anion Gap 9.0 (6-13) BUN 32 H (6-20) mg/dL Creatinine 1.3 H (0.4-1.0) mg/dL Estimated GFR (MDRD) 40 L (>89) Glucose 319 H (70-100) mg/dL POC Whole Bld Glucose (70 - 100) mg/dL Estimat Average Glucose 186 H (70-100) mg/dL Hemoglobin A1c % 8.1 H (4.27-6.07) % Lactic Acid (0.5-2.2) mmol/L Calcium 8.2 L (8.5-10.3) mg/dL Troponin I High Sens (2.3-14.8) ng/L 06/25/20 06/25/20 06/24/20 Range/Units 01:00 00:59 21:55 WBC (4.8-10.8) x10^3/uL RBC (4.20-5.40) 10^6/uL Hgb (12.0-16.0) g/dL Hct (37.0-47.0) % MCV (81.0-99.0) fL MCH (27.0-31.0) pg MCHC (32.0-36.0) g/dL RDW (12.0-15.0) % Plt Count (130-450) 10^3/uL MPV (7.9-10.8) fL Neut # (Auto) Lymph # (Auto) Hendricks # (Auto) Eos # (Auto) Baso # (Auto) Absolute Nucleated RBC Total Counted Band Neuts % (Manual) (0 - 10) % Abnorm Lymph % (Manual) % Nucleated RBC % Neutrophils # (Manual) (1.5-6.6) 10^3/uL Lymphocytes # (Manual) (1.5-3.5) 10^3/uL Monocytes # (Manual) (0.0-1.0) 10^3/uL Eosinophils # (Manual) (0-0.7) 10^3/uL Basophils # (Manual) (0-0.1) 10^3/uL Differential Comment Platelet Estimate (NORMAL) RBC Morph Micro Appear (NORMAL) Sodium (135-145) mmol/L Potassium (3.5-5.0) mmol/L Chloride (101-111) mmol/L Carbon Dioxide (21-32) mmol/L Anion Gap (6-13) BUN (6-20) mg/dL Creatinine (0.4-1.0) mg/dL Estimated GFR (MDRD) (>89) Glucose (70-100) mg/dL POC Whole Bld Glucose 274 H 344 H (70 - 100) mg/dL Estimat Average Glucose (70-100) mg/dL Hemoglobin A1c % (4.27-6.07) % Lactic Acid 2.0 (0.5-2.2) mmol/L Calcium (8.5-10.3) mg/dL Troponin I High Sens (2.3-14.8) ng/L 06/24/20 06/24/20 06/24/20 Range/Units 21:55 20:27 19:00 WBC (4.8-10.8) x10^3/uL RBC (4.20-5.40) 10^6/uL Hgb (12.0-16.0) g/dL Hct (37.0-47.0) % MCV (81.0-99.0) fL MCH (27.0-31.0) pg MCHC (32.0-36.0) g/dL RDW (12.0-15.0) % Plt Count (130-450) 10^3/uL MPV (7.9-10.8) fL Neut # (Auto) Lymph # (Auto) Hendricks # (Auto) Eos # (Auto) Baso # (Auto) Absolute Nucleated RBC Total Counted Band Neuts % (Manual) (0 - 10) % Abnorm Lymph % (Manual) % Nucleated RBC % Neutrophils # (Manual) (1.5-6.6) 10^3/uL Lymphocytes # (Manual) (1.5-3.5) 10^3/uL Monocytes # (Manual) (0.0-1.0) 10^3/uL Eosinophils # (Manual) (0-0.7) 10^3/uL Basophils # (Manual) (0-0.1) 10^3/uL Differential Comment Platelet Estimate (NORMAL) RBC Morph Micro Appear (NORMAL) Sodium (135-145) mmol/L Potassium (3.5-5.0) mmol/L Chloride (101-111) mmol/L Carbon Dioxide (21-32) mmol/L Anion Gap (6-13) BUN (6-20) mg/dL Creatinine (0.4-1.0) mg/dL Estimated GFR (MDRD) (>89) Glucose (70-100) mg/dL POC Whole Bld Glucose 377 H (70 - 100) mg/dL Estimat Average Glucose (70-100) mg/dL Hemoglobin A1c % (4.27-6.07) % Lactic Acid 3.8 H* 3.8 H* (0.5-2.2) mmol/L Calcium (8.5-10.3) mg/dL Troponin I High Sens (2.3-14.8) ng/L 06/24/20 Range/Units 19:00 WBC (4.8-10.8) x10^3/uL RBC (4.20-5.40) 10^6/uL Hgb (12.0-16.0) g/dL Hct (37.0-47.0) % MCV (81.0-99.0) fL MCH (27.0-31.0) pg MCHC (32.0-36.0) g/dL RDW (12.0-15.0) % Plt Count (130-450) 10^3/uL MPV (7.9-10.8) fL Neut # (Auto) Lymph # (Auto) Hendricks # (Auto) Eos # (Auto) Baso # (Auto) Absolute Nucleated RBC Total Counted Band Neuts % (Manual) (0 - 10) % Abnorm Lymph % (Manual) % Nucleated RBC % Neutrophils # (Manual) (1.5-6.6) 10^3/uL Lymphocytes # (Manual) (1.5-3.5) 10^3/uL Monocytes # (Manual) (0.0-1.0) 10^3/uL Eosinophils # (Manual) (0-0.7) 10^3/uL Basophils # (Manual) (0-0.1) 10^3/uL Differential Comment Platelet Estimate (NORMAL) RBC Morph Micro Appear (NORMAL) Sodium (135-145) mmol/L Potassium (3.5-5.0) mmol/L Chloride (101-111) mmol/L Carbon Dioxide (21-32) mmol/L Anion Gap (6-13) BUN (6-20) mg/dL Creatinine (0.4-1.0) mg/dL Estimated GFR (MDRD) (>89) Glucose (70-100) mg/dL POC Whole Bld Glucose (70 - 100) mg/dL Estimat Average Glucose (70-100) mg/dL Hemoglobin A1c % (4.27-6.07) % Lactic Acid (0.5-2.2) mmol/L Calcium (8.5-10.3) mg/dL Troponin I High Sens 110.2 H* (2.3-14.8) ng/L Sepsis Event Note (H) - Evaluation Current Stage of Sepsis: Severe sepsis Possible source of Sepsis: positive: Pulmonary - Sepsis Criteria Sepsis Criteria: Recorded Respiratory Rate greater than 20, Respiratory: Increasing oxygen requirements, WBC count greater than 10% bands, WBC count greater than 12,000 or less than 4000 Assessment/Plan - Problem List (1) Acute respiratory failure with hypoxia Impression: Likely related to pneumonia. Requiring NRB on admission.She stabilized with treatment yesterday evening. She was still significantly hypoxic but her hypoxemic oxygen requirement seem to be stable. Over the course of tonight and into this morning she is gradually required more more oxygen. She has become more more obtunded and is no longer responsive. Her daughter has been at the bedside. She is on 85% FiO2, 40 L/min, and O2 sat is 91%. If you do any moveme nt, such as suctioning, getting her to drink something, she drops her O2 sats into the 80s. Long conversation was had with son and daughter this evening. They acknowledge that over the last few months if not the last year she has been even more forgetful. She is starting to pocket food, not eat. Becoming incontinent of urine. Less mobile. Monosyllabic in her responses. She never would have wanted her life to be this way. With this hospitalization, even if she does recover, she will need significant rehab to try and get her back to the baseline she is before admission. They do not feel that this is what she would want to. And as such they are asking me to transition her to comfort measures. Plan: Wait for her son to come with son-in-law and [id number] as well. That way they can be at the bedside. We will stop all measures of antibiotics, IV fluids, oxygen. No labs, no vital signs. She will be switched over to Ativan, morphine, Tylenol, Zofran, scopolamine, Robinul. (2) Sepsis Conclusion/Plan: Comes with elevated WBC, RR, lactic acidosis and likely pneumonia. Discussed Sepsis fluid bolus, given her elevated BNP and normal blood pressure decided to hold fluid bolus. Will readdress if she becomes hypotensive or end organ pro perfusion. Qualifiers: Sepsis type: sepsis due to unspecified organism Sepsis acute organ dysfunction status: without acute organ dysfunction Qualified Code(s): A41.9 - Sepsis, unspecified organism (3) NSTEMI (non-ST elevated myocardial infarction) Conclusion/Plan: No EKG changes. Differential includes demand ischemia, PE, Uptrending troponin. Unable to do CTA chest due iodine allergy, VQ perfusion study has been ordered. However due to the severe hypoxemia today she was not able to do the VQ scan.. Placed on Lovenox and metoprolol. Troponin started at 125.8. Second troponin liseth to 142.1. Third set dropped to 110.2. Most likely demand ischemia and not an NSTEMI. Plan: Comfort measures will mean we will stop these medications. (4) Pneumonia Conclusion/Plan: Community Acquired PNA, with hypoxia. Pt received Rocephin and Azthromyocin in the ED. Blood cultures were drawn prior to antibiotics. Nasal PCR was unremarka ble. Have been negative so far. Plan: Stop antibiotics and transition to comfort measures Qualifiers: Pneumonia type: due to unspecified organism Laterality: bilateral Lung location: unspecified part of lung Qualified Code(s): J18.9 - Pneumonia, unspecified organism (5) COPD (chronic obstructive pulmonary disease) Conclusion/Plan: Likely not exacerbation given XR finding, lactic acidosis. Switching inhalers to nebs in the inpatient setting. Plan: Transition to comfort measures Qualifiers: COPD type: unspecified COPD Qualified Code(s): J44.9 - Chronic obstructive pulmonary disease, unspecified (6) HTN (hypertension) Conclusion/Plan: Normally on Lorsartan outpatient. Holding lorsartan for now. Qualifiers: Hypertension type: essential hypertension Qualified Code(s): I10 - Essentia l (primary) hypertension (7) Diabetes mellitus type 2 with complications Conclusion/Plan: We had started Lantus and sliding scale insulins. That will be discontinued. (8) Hepatic cirrhosis due to chronic hepatitis C infection Conclusion/Plan: Hep. C induced cirrhosis. History of esophageal varices with banding in the past. Hx of hyperammonemia, encephalopathy managed with rifaximin and lactulose. Will continue home meds. Will check ammonia level if any changes in mentation, currently at her baseline per son. (9) Acute renal failure superimposed on stage 3 chronic kidney disease Conclusion/Plan: Current Creatinine 1.2 with estimated GFR of 36. Avoid nephrotoxic meds as possible. Qualifiers: Acute renal failure type: unspecified Chronic kidney disease stage 3 subtype: stage 3a (GFR 45-59) Qualified Code(s): N17.9 - Acute kidney failure, unspecified; N18.31 - Chronic kidney disease, stage 3a
[2020-06-25] MEDS ORDERED: CARBOXYMETHYLCELLULOSE OPHTH DROPS EACHEYE PRN (20:13)
[2020-06-25] MEDS ORDERED: ATROPINE 1% OPHTH DROPS 2 ML SL PRN (20:13)
[2020-06-25] MEDS ORDERED: GLYCOPYRROLATE 1 MG/5 ML VIAL SUBQ PRN (20:13)
[2020-06-25] MEDS ORDERED: MORPHINE 2 MG/ML CARPUJECT IVP PRN (20:13)
[2020-06-25] MEDS ORDERED: LORazepam 2 MG/ML VIAL IVP PRN (20:13)
[2020-06-25] MEDS ORDERED: MORPHINE SOL 10 MG/0.5 ML ORAL SYRINGE PO PRN (20:13)
[2020-06-25] MEDS ORDERED: INSULIN GLARGINE 300 UNIT/3 ML PEN SUBQ SCH (21:00)
--- NOTE | 2020-06-25 21:30 | Discharge Plan ---
Discharge Plan Problem Reviewed?: Yes Disposition: 20 No Smoking: If you smoke, Please STOP! Call for help. Follow-up with: SHAWNEE GONZALEZ MD [Primary Care Provider] -
--- NOTE | 2020-06-25 21:32 | DISCHARGE SUMMARY ---
Discharge Summary Admit Date: 06/24/20 Discharge Date: 06/25/20 Discharging Provider: Jhony Dupont Primary Care Provider: Sunny Powell Code Status: Do Not Attempt Resuscitation Discharge Disposition: 20 - DIAGNOSES Admission Diagnoses: Acute respiratory failure with hypoxia Sepsis NSTEMI Pneumonia COPD Hypertension Type 2 diabetes mellitus Hepatic cirrhosis due to chronic pleurisy NUBIA on CKD stage III Discharge Diagnoses with Status of Each Condition: Acute respiratory failure with hypoxia Severe sepsis NSTEMI Pneumonia COPD Hypertension Type 2 diabetes mellitus Hepatic cirrhosis due to chronic pleurisy NUBIA on CKD stage III - HPI History of Present Illness: H&P per Dr. Camacho: Iris is 79 y.o. female, who was brought in by her son Nabeel for shortness of breath and oxygen desaturation. 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 Her son is providing all of her history due the patients severe dementia. She only able to provide limited one word answers, and son states this not far from neuro baseline. Over the past 3 days the patient had had low grade fever, without other symptoms. Before this was in her normal state. Patient has history of UTI and had just finished a course antibiotics, though her son did not know which antibiotic. This morning her caregiver found the patient with labored breathing, blue tinged lips, and home SaO2 probed showed 61%. The patients son then brought her into the ED for evaluation. On ED admission she was hypoxic requiring NRB for stabilization. She has no significant changes in mentation, or respiratory distress. Labs show elevated troponin and BNP. EKG was completed and did not show ST changes. The pa tient denies chest pain or pressure and her son states she has had no indication of pain prior to this episode. She also has no prior history of heart failure. XR showed bilateral diffuse lung opacities, WBC elevated 18.9, lactic acid level 3.0. Nasal PCR was unremarkable. Pt has had her COVID vaccine. Septic fluid challenge was deferred due to increased BNP and currently normotensive. - HOSPITAL COURSE Hospital Course: She was admitted to the intensive care unit for acute hypoxic respiratory failure and severe sepsis secondary to suspected pneumonia. Her lactic acid was initially elevated and she was hydrated with IV fluids. She was also started on ceftriaxone and azithromycin for suspected community-acquired pneumonia. Her troponin was also found to be elevated in the 110s. Although her EKG did not suggest ischemia, she was started on Lovenox for suspected NSTEMI. She was initially on 4 L of oxygen via nasal cannula but throughout her first night of hospitalization, she had increase in her oxygen requirements and she required high flow nasal cannula at 40 L/min at an FiO2 of 80%. IV fluids were discontinued but she was not diuresed given she was septic on admission had elevated lactic acid. Family had made it clear from the onset that she was a DNR and they did not want intubation. We did add Flagyl IV overnight given the concern for possible aspiration pneumonia in addition to community-acquired pneumonia. Her respiratory PCR panel was negative. The following day should become more obtunded and continue to have a high oxygen requirement. Given her decline, conversation was held with the patient's son and daughter to discuss goals of care further. After further discussion, they both agreed that the patient would not want such aggressive measures given her poor quality of life overall. They decided to transition her to comfort measures only. All antibiotics and anticoagulation were discontinued. She was started on morphine, scopolamine, Ativan as needed. Patient shortly thereafter at 21:18. Family was present at bedside. - ALLERGIES Allergies/Adverse Reactions: Allergies Allergy/AdvReac Type Severity Reaction Status Date / Time Iodinated Contrast Media Allergy Unknown Verified 11/15/18 20:33 [Iodinated Contrast- Oral and IV Dye] shellfish derived Allergy Anaphylaxis Verified 11/15/18 20:33 - MEDICATIONS Home Medications: Ambulatory Orders Medication Instructions Recorded Confirmed Atorvastatin [Lipitor] 10 mg PO QDBREAKFAST 09/08/18 06/24/20 Bumetanide 1 mg PO BID 09/08/18 06/24/20 Fluticasone 44 Mcg [Flovent] 2 puffs INH BID 09/08/18 06/24/20 Ibuprofen 200 mg PO QPM 09/08/18 06/24/20 Insulin Aspart [NovoLOG] 0 unit SUBQ ACHS 09/08/18 06/24/20 Insulin Detemir [Levemir Flextouch] 9 - 11 unit SUBQ QPM 09/08/18 06/24/20 Ipratropium/Albuterol [Combivent 1 puffs INH QID 09/08/18 06/24/20 Respimat] Lactulose 20 gm PO BID 09/08/18 06/24/20 Losartan Potassium 100 mg PO QDDINNER 09/08/18 06/24/20 Magnesium Oxide [Mag Ox] 400 mg PO QDBREAKFAST 09/08/18 06/24/20 Sertraline [Zoloft] 100 mg PO QDBREAKFAST 09/08/18 06/24/20 rifAXIMin [Xifaxan] 550 mg PO BID 09/08/18 06/24/20 traZODone [Desyrel] 50 mg PO QPM 09/08/18 06/24/20 Calcium Carbonate [Tums (Calcium 1,500 mg PO DAILY 06/24/20 06/24/20 Carbonate 500mg)] Cholecalciferol (Vitamin D3) 25 mcg PO DAILY 06/24/20 06/24/20 [Vitamin D3] Levothyroxine Sodium 88 mcg PO DAILY 06/24/20 06/24/20 [Levothyroxine] Potassium Chloride 40 meq PO DAILY 06/24/20 06/24/20 - PHYSICAL EXAM AT DISCHARGE Eyes Bilateral: positive: Other (Pupils fixed and dilated) Respiratory: positive: Other (No respirations.) Cardiovascular: positive: Other (Absent heart sounds.) Peripheral Pulses: positive: 0 - LABS Result Diagrams: 06/25/20 04:25 06/25/20 04:25 - SEPSIS Current Stage of Sepsis: Severe sepsis Possible source of Sepsis: Pulmonary Sepsis Criteria: Recorded Respiratory Rate greater than 20, Respiratory: Increas ing oxygen requirements, WBC count greater than 10% bands, WBC count greater than 12,000 or less than 4000
== END 2020-06-25 21:18 | disposition expired | DRG 871 ==
LOC: ED 10:23 → ICU 11:57
PROVIDERS: ADMIT Specialist; ATTEND Internal Medicine
DX: A41.9 Sepsis, unspecified organism (principal); J18.9 Pneumonia, unspecified organism; R09.02 Hypoxemia; I50.9 Heart failure, unspecified; E11.9 Type 2 diabetes mellitus without complications; J96.01 Acute respiratory failure with hypoxia; I21.4 Non-ST elevation (NSTEMI) myocardial infarction; Z20.822 Contact with and (suspected) exposure to COVID-19; J44.9 Chronic obstructive pulmonary disease, unspecified; B19.20 Unspecified viral hepatitis C without hepatic coma; J69.0 Pneumonitis due to inhalation of food and vomit; N17.9 Acute kidney failure, unspecified; J44.0 Chronic obstructive pulmonary disease with (acute) lower respiratory infection; R65.20 Severe sepsis without septic shock; E11.22 Type 2 diabetes mellitus with diabetic chronic kidney disease; E11.65 Type 2 diabetes mellitus with hyperglycemia; I12.9 Hypertensive chronic kidney disease with stage 1 through stage 4 chronic kidney disease, or unspecified chronic kidney disease; N18.31 Chronic kidney disease, stage 3a; K74.60 Unspecified cirrhosis of liver; B18.2 Chronic viral hepatitis C; E03.9 Hypothyroidism, unspecified; Z66 Do not resuscitate; R09.1 Pleurisy; F03.90 Unspecified dementia, unspecified severity, without behavioral disturbance, psychotic disturbance, mood disturbance, and anxiety; L89.629 Pressure ulcer of left heel, unspecified stage; B35.3 Tinea pedis; Z87.440 Personal history of urinary (tract) infections; Z79.4 Long term (current) use of insulin; Z79.899 Other long term (current) drug therapy
CPT/HCPCS: 36415; 71045; 80048; 80053; 81001; 83036; 83605; 83880; 84484; 85025; 87040; 87086; 87150; 87181; 87631; 93005; 94640; 96374; 99285; A6250; A9270; J1650; J1815; J2060; J7120; J7626; J8499; 0202U